=== PATIENT | male | born 1955 | race African-American/Black ===

== ENCOUNTER 2016-08-11 12:29 | Inpatient (IN) | payer MEDICARE ==
[~2016-08-11] VITALS: Ht 172.7 cm; Wt 77.1 kg
[2016-08-11 13:14] LABS: Basophils # (auto) 0.1 uL; Basophils % (auto) 1.2 % (0.0-2.0); DEFINITIVE VIEW TRANSMISSION; Eosinophils # (auto) 0.1 uL; Eosinophils % (auto) 2.4 % (0.0-7.0); Hematocrit 44.7 % (41.0-53.0); Hemoglobin 14.1 g/dL (13.5-17.5); Lymphocytes # (auto) 1.5 uL; Lymphocytes % (auto) 32.9 % (10.0-50.0); Mean Corpuscular Hemoglobin 24.1 pg (28.0-32.0); Mean Corpuscular Hgb Conc. 31.6 g/dL (32.0-36.0); Mean Corpuscular Volume 76.2 fL (80.0-100.0); Mean Platelet Volume 8.8 fL (7.4-10.4); Monocytes # (auto) 0.5 uL; Monocytes % (auto) 11.7 % (0.0-12.0); Neutrophils # (auto) 2.4 uL; Neutrophils % (auto) 51.8 % (37.0-80.0); Platelet Count (auto) 196 10^3/uL (140-450); Red Cell Distribution Width 16.2 % (11.6-16.0); White Blood Cell 4.7 10^3/uL (4.4-10.8)
[2016-08-11] MEDS ORDERED: MORPHINE SULFATE 4 MG/ML SYRG IV ONE (13:30)
[2016-08-11] MEDS ORDERED: SODIUM CHLORIDE 0.9% 1,000 ML IV ONE (13:30)
[2016-08-11] MEDS ORDERED: NITROGLYCERIN 0.2MG/HR TOPICAL PATCH TD ONE (13:30)
[2016-08-11] MEDS ORDERED: ONDANSETRON HCL 4 MG/2 ML VIAL IV ONE (13:30)
[2016-08-11] MEDS ORDERED: ASPirin 81 mg TAB PO ONE (13:30)
[2016-08-11 13:55] LABS: Albumin 3.4 g/dL (3.4-5.0); Alkaline Phosphatase 64 U/L (45-117); Anion Gap 10 (5-15); Aspartate Aminotransferase 9 U/L (15-37); BUN/Creatinine Ratio 17.2; Bilirubin, Total 0.3 mg/dL (0.2-1.0); Blood Urea Nitrogen 21 mg/dL (7-18); Calcium 8.5 mg/dL (8.5-10.1); Carbon Dioxide 24 mmol/L (21-32); Chloride 110 mmol/L (98-107); GFR African American 77 mL/min; GFR Non-African American 64 mL/min; Glucose 100 mg/dL (74-106); Magnesium 2.2 mg/dL (1.6-2.6); Potassium 4.2 mmol/L (3.5-5.1); Sodium 144 mmol/L (136-145); Total Protein 6.9 g/dL (6.4-8.2)
[2016-08-11] MEDS ORDERED: SODIUM CHLORIDE 0.9% 1,000 ML IV SCH (14:54)
[2016-08-11] MEDS ORDERED: PROMETHAZINE HCL 25 MG/ML 1ML IV PRN (15:00)
[2016-08-11] MEDS ORDERED: MORPHINE SULF INJ 2 MG/ML SYRINGE 1ML IV PRN (15:00)
[2016-08-11] MEDS ORDERED: NITROGLYCERIN 0.4 MG SL TAB SL PRN (15:00)
[2016-08-11] MEDS ORDERED: TEMAZEPAM 15 MG CAP PO PRN (15:00)
[2016-08-11] MEDS ORDERED: LACTULOSE 20Gm/30ML SOLN PO PRN (15:00)
[2016-08-11] MEDS ORDERED: LORazepam 0.5 MG TAB PO PRN (15:00)
[2016-08-11] MEDS ORDERED: ACETAMINOPHEN 500 MG TAB PO PRN (15:00)
[2016-08-11] MEDS ORDERED: ALBUTEROL SULF 2.5 MG/0.5ML(0.5%) NEB SOLN NEB PRN (15:00)
[2016-08-11] MEDS ORDERED: ENOXAPARIN SOD 40 MG/0.4 ML SYRINGE SC ONE (15:15)
[2016-08-11] MEDS ORDERED: METOPROLOL TARTRATE 25 MG TAB PO ONE (15:15)
[2016-08-11] MEDS ORDERED: MET50T PO (16:33)
[2016-08-11] MEDS ORDERED: HYDR-531 PO (16:33)
[2016-08-11] MEDS ORDERED: TRIH2TAB3 PO (16:33)
[2016-08-11] MEDS ORDERED: TAMS0.4C36 PO (16:33)
[2016-08-11] MEDS ORDERED: IBUP200C14 PO (16:33)
[2016-08-11] MEDS ORDERED: FAM20T PO (16:33)
[2016-08-11] MEDS ORDERED: ATOR20TA50 PO (16:33)
[2016-08-11] MEDS ORDERED: OLAN10TA29 PO (16:33)
[2016-08-11] MEDS ORDERED: PROM25TA5 PO (16:33)
[2016-08-11] MEDS ORDERED: TRAZ100T2 PO (16:33)
[2016-08-11] MEDS ORDERED: ENAL5TAB92 PO (16:33)
[2016-08-11 16:42] VITALS: BP 153/87
[2016-08-11] MEDS: HYDROcodone-ACET 5/325MG TAB PO PRN (16:54)
[2016-08-11] MEDS: NICOTINE 14 MG/24HR TOPICAL PATCH TD SCH (18:22)
[2016-08-11 19:30] VITALS: BP 133/74
[2016-08-11] MEDS ORDERED: THIAMINE HCL 100 MG/ML 2ML VIAL IV ONE (20:45)
[2016-08-11] MEDS ORDERED: ATORVASTATIN 20 MG TAB PO ONE (21:15)
[2016-08-11] MEDS ORDERED: TAMSULOSIN HYDROCHLORIDE 0.4 MG CAP PO ONE (21:15)
[2016-08-11 22:00] VITALS: BP 133/74
[2016-08-11] MEDS ORDERED: PATIENTS OWN MEDICATION PO SCH ×2 (22:00)
[2016-08-11] MEDS ORDERED: OLANZAPINE PO SCH (22:00)
[2016-08-11] MEDS ORDERED: TRIHEXYPHENIDYL 2 MG PO SCH (22:00)
[2016-08-11] MEDS ORDERED: METOPROLOL TARTRATE 25 MG TAB PO SCH (22:00)
[2016-08-11] MEDS ORDERED: ATORVASTATIN 20 MG TAB PO SCH (22:00)
[2016-08-11] MEDS: FAMOTIDINE 20 MG TAB PO SCH (22:00)
[2016-08-11] MEDS ORDERED: TRIHEXYPHENIDYL HCL PO SCH (22:00)
[2016-08-11] MEDS: TRIHEXYPHENIDYL HCL 2 MG PO SCH (23:11)
[2016-08-11] MEDS: traZODone HCL 50 MG TAB PO SCH (23:12)
[2016-08-11] MEDS: METOPROLOL TARTRATE 50 MG TAB PO SCH (23:13)
[2016-08-11] MEDS: OLANZapine 5 MG TAB PO SCH (23:14)
[2016-08-11] MEDS: SODIUM CHLORIDE 0.9% 1,000 ML IV SCH (23:16)
[2016-08-11] MEDS: chlordiazePOXIDE HCL 5 MG CAP PO SCH (23:49)
[2016-08-12] MEDS: chlordiazePOXIDE HCL 5 MG CAP PO SCH ×4 (05:24→23:48)
[2016-08-12 05:32] VITALS: BP 149/70
[2016-08-12] MEDS: HYDROcodone-ACET 5/325MG TAB PO PRN (06:03)
[2016-08-12 06:39] LABS: Cholesterol 120 mg/dL (<200); HDL Cholesterol 64 mg/dL (40-59); LDL Cholesterol 47 mg/dL (<100); Triglycerides 88 mg/dL (<150)
[2016-08-12 09:00] VITALS: BP 157/70
[2016-08-12] MEDS: ENOXAPARIN SOD 40 MG/0.4 ML SYRINGE SC SCH (09:29)
[2016-08-12] MEDS: FAMOTIDINE 20 MG TAB PO SCH ×3 (09:29→21:48)
[2016-08-12] MEDS: TAMSULOSIN HYDROCHLORIDE 0.4 MG CAP PO SCH (09:29)
[2016-08-12] MEDS: ASPirin 81 mg TAB PO SCH (09:29)
[2016-08-12] MEDS: OLANZapine 5 MG TAB PO SCH ×2 (09:29→21:48)
[2016-08-12] MEDS: ATORVASTATIN 20 MG TAB PO SCH (09:30)
[2016-08-12] MEDS: THIAMINE HCL 100 MG/ML 2ML VIAL IV SCH (09:30)
[2016-08-12] MEDS: METOPROLOL TARTRATE 50 MG TAB PO SCH ×2 (09:32→21:47)
[2016-08-12] MEDS: TRIHEXYPHENIDYL HCL 2 MG PO SCH ×2 (09:32→21:47)
[2016-08-12] MEDS: ENALAPRIL MALEATE 2.5 MG TAB PO SCH (09:33)
[2016-08-12] MEDS ORDERED: PATIENTS OWN MEDICATION (Enalapril Maleate 1 TAB) PO SCH (10:00)
[2016-08-12] MEDS: NITROGLYCERIN 0.2MG/HR TOPICAL PATCH TD SCH (10:00)
[2016-08-12] MEDS: NICOTINE 14 MG/24HR TOPICAL PATCH TD SCH (10:00)
[2016-08-12 13:00] VITALS: BP 131/67
[2016-08-12 17:00] VITALS: BP 133/71
[2016-08-12] MEDS: SODIUM CHLORIDE 0.9% 1,000 ML IV SCH (17:45)
[2016-08-12] MEDS: MORPHINE SULF INJ 2 MG/ML SYRINGE 1ML IV PRN ×2 (17:46→21:56)
[2016-08-12] MEDS ORDERED: PATIENTS OWN MEDICATION (Trazodone Hcl 1 TAB) PO SCH (18:00)
[2016-08-12 20:00] VITALS: BP 139/53
[2016-08-12] MEDS: traZODone HCL 50 MG TAB PO SCH (21:48)
[2016-08-12 22:00] VITALS: BP 139/53
[2016-08-13] VITALS (7 sets, daily range): BP systolic 123–147; BP diastolic 47–77
[2016-08-13] MEDS: SODIUM CHLORIDE 0.9% 1,000 ML IV SCH ×2 (01:55→15:15)
[2016-08-13] MEDS: chlordiazePOXIDE HCL 5 MG CAP PO SCH ×3 (05:48→18:50)
[2016-08-13] MEDS: MORPHINE SULF INJ 2 MG/ML SYRINGE 1ML IV PRN ×4 (05:52→22:59)
[2016-08-13] MEDS: NITROGLYCERIN 0.2MG/HR TOPICAL PATCH TD SCH (10:00)
[2016-08-13] MEDS: FAMOTIDINE 20 MG TAB PO SCH ×2 (10:00→22:00)
[2016-08-13] MEDS: NICOTINE 14 MG/24HR TOPICAL PATCH TD SCH (10:00)
[2016-08-13] MEDS: TAMSULOSIN HYDROCHLORIDE 0.4 MG CAP PO SCH (11:26)
[2016-08-13] MEDS: THIAMINE HCL 100 MG/ML 2ML VIAL IV SCH (11:26)
[2016-08-13] MEDS: ENOXAPARIN SOD 40 MG/0.4 ML SYRINGE SC SCH (11:26)
[2016-08-13] MEDS: OLANZapine 5 MG TAB PO SCH ×2 (11:26→21:59)
[2016-08-13] MEDS: ASPirin 81 mg TAB PO SCH (11:26)
[2016-08-13] MEDS: METOPROLOL TARTRATE 50 MG TAB PO SCH ×2 (11:27→22:00)
[2016-08-13] MEDS: TRIHEXYPHENIDYL HCL 2 MG PO SCH ×2 (11:28→21:59)
[2016-08-13] MEDS: ENALAPRIL MALEATE 2.5 MG TAB PO SCH (11:28)
[2016-08-13] MEDS: ATORVASTATIN 20 MG TAB PO SCH (11:30)
[2016-08-13] MEDS: traZODone HCL 50 MG TAB PO SCH (21:59)
[2016-08-14] VITALS (7 sets, daily range): BP systolic 129–155; BP diastolic 63–73
[2016-08-14] MEDS: chlordiazePOXIDE HCL 5 MG CAP PO SCH ×5 (00:22→23:39)
[2016-08-14] MEDS: SODIUM CHLORIDE 0.9% 1,000 ML IV SCH ×2 (05:42→18:37)
[2016-08-14] MEDS ORDERED: ADENOSINE 64 MG in GIVE UN-DILUTED 0 ML IV ONE (09:30)
[2016-08-14] MEDS: NITROGLYCERIN 0.2MG/HR TOPICAL PATCH TD SCH (10:00)
[2016-08-14] MEDS: FAMOTIDINE 20 MG TAB PO SCH ×2 (10:00→21:36)
[2016-08-14] MEDS: NICOTINE 14 MG/24HR TOPICAL PATCH TD SCH (10:00)
[2016-08-14] MEDS: ENOXAPARIN SOD 40 MG/0.4 ML SYRINGE SC SCH (10:38)
[2016-08-14] MEDS: ATORVASTATIN 20 MG TAB PO SCH (10:38)
[2016-08-14] MEDS: OLANZapine 5 MG TAB PO SCH ×2 (10:38→21:35)
[2016-08-14] MEDS: ASPirin 81 mg TAB PO SCH (10:38)
[2016-08-14] MEDS: ENALAPRIL MALEATE 2.5 MG TAB PO SCH (10:38)
[2016-08-14] MEDS: TAMSULOSIN HYDROCHLORIDE 0.4 MG CAP PO SCH (10:39)
[2016-08-14] MEDS: METOPROLOL TARTRATE 50 MG TAB PO SCH ×2 (10:39→21:35)
[2016-08-14] MEDS: THIAMINE HCL 100 MG/ML 2ML VIAL IV SCH (10:39)
[2016-08-14] MEDS: MORPHINE SULF INJ 2 MG/ML SYRINGE 1ML IV PRN ×2 (10:56→17:25)
[2016-08-14] MEDS: TRIHEXYPHENIDYL HCL 2 MG PO SCH ×2 (10:56→21:36)
[2016-08-14] MEDS: traZODone HCL 50 MG TAB PO SCH (21:35)
[2016-08-15 05:02] VITALS: BP 114/57
[2016-08-15] MEDS: chlordiazePOXIDE HCL 5 MG CAP PO SCH ×2 (06:05→11:08)
[2016-08-15] MEDS: SODIUM CHLORIDE 0.9% 1,000 ML IV SCH (07:15)
[2016-08-15 08:00] VITALS: BP 124/65
[2016-08-15 09:00] VITALS: BP 124/65
[2016-08-15] MEDS: THIAMINE HCL 100 MG/ML 2ML VIAL IV SCH (09:23)
[2016-08-15] MEDS: ASPirin 81 mg TAB PO SCH (09:23)
[2016-08-15] MEDS: OLANZapine 5 MG TAB PO SCH (09:24)
[2016-08-15] MEDS: TAMSULOSIN HYDROCHLORIDE 0.4 MG CAP PO SCH (09:24)
[2016-08-15] MEDS: ENOXAPARIN SOD 40 MG/0.4 ML SYRINGE SC SCH (09:24)
[2016-08-15] MEDS: ENALAPRIL MALEATE 2.5 MG TAB PO SCH (09:24)
[2016-08-15] MEDS: METOPROLOL TARTRATE 50 MG TAB PO SCH (09:25)
[2016-08-15] MEDS: NITROGLYCERIN 0.2MG/HR TOPICAL PATCH TD SCH (09:26)
[2016-08-15] MEDS: NICOTINE 14 MG/24HR TOPICAL PATCH TD SCH (09:26)
[2016-08-15] MEDS: FAMOTIDINE 20 MG TAB PO SCH (09:27)
[2016-08-15] MEDS: MORPHINE SULF INJ 2 MG/ML SYRINGE 1ML IV PRN (09:28)
[2016-08-15] MEDS: TRIHEXYPHENIDYL HCL 2 MG PO SCH (10:00)
[2016-08-15] MEDS: HYDROcodone-ACET 5/325MG TAB PO PRN (11:17)
[2016-08-15 12:50] VITALS: BP 131/71
[2016-08-15 13:15] VITALS: BP 131/71
[2016-08-15] MEDS ORDERED: ATORVASTATIN 20 MG TAB PO SCH (22:00)
== END 2016-08-15 13:50 | disposition left against medical advice (07) | DRG 313 ==
LOC: ER 12:29 → TELE 12:30 → TELE-EAST 15:56
PROVIDERS: ADMIT Internal Medicine; ATTEND Internal Medicine Pulmonary Disease
DX: R07.9 Chest pain, unspecified (principal); I25.10 Atherosclerotic heart disease of native coronary artery without angina pectoris; E78.00 Pure hypercholesterolemia, unspecified; E78.5 Hyperlipidemia, unspecified; F17.210 Nicotine dependence, cigarettes, uncomplicated; F20.9 Schizophrenia, unspecified; F12.10 Cannabis abuse, uncomplicated; F10.20 Alcohol dependence, uncomplicated; F32.9 Major depressive disorder, single episode, unspecified; I15.9 Secondary hypertension, unspecified; J44.9 Chronic obstructive pulmonary disease, unspecified; K21.9 Gastro-esophageal reflux disease without esophagitis; Z82.3 Family history of stroke; Z90.5 Acquired absence of kidney; Z82.49 Family history of ischemic heart disease and other diseases of the circulatory system; Z71.51 Drug abuse counseling and surveillance of drug abuser; Z71.6 Tobacco abuse counseling; I25.2 Old myocardial infarction
CPT/HCPCS: 36415; 71010; 74176; 78452; 80053; 80061; 82550; 83735; 84484; 85025; 85379; 85652; 86141; 93005; 93017; 94640; 94761; 96372; 96374; 96375; 99291; G0434; J0153; J2405

== ENCOUNTER 2017-04-11 20:32 | Emergency (ER) | payer OTHER, MEDICAID ==
[~2017-04-11] VITALS: Ht 172.7 cm; Wt 76.7 kg
[~2017-04-11 20:32] MED LIST: ACET-1156 PO; ATOR20TA50 PO; ENAL5TAB92 PO; FAM20T PO; HYDR-531 PO; IBUP200C14 PO; MET50T PO; OLAN10TA29 PO; TAMS0.4C36 PO; TRAZ100T2 PO; TRIH2TAB3 PO
[2017-04-11 21:15] LABS: Eosinophils # (auto) 0.1 uL; Hemoglobin 13.1 g/dL (13.5-17.5); Mean Corpuscular Hemoglobin 24.8 pg (28.0-32.0); Mean Corpuscular Hgb Conc. 32.1 g/dL (32.0-36.0); Mean Platelet Volume 7.7 fL (6.9-10.8); Nucleated Red Blood Cells % 0.1 %; White Blood Cell 5.4 10^3/uL (4.4-10.8)
[2017-04-11 21:16] LABS: Basophils # (auto) 0.2 uL; Basophils % (auto) 4.4 % (0.0-2.0); Eosinophils % (auto) 2.5 % (0.0-7.0); Hematocrit 40.9 % (41.0-53.0); Lymphocytes % (auto) 37.5 % (10.0-50.0); Mean Corpuscular Volume 77.4 fL (80.0-100.0); Monocytes # (auto) 0.4 uL; Monocytes % (auto) 8.1 % (0.0-12.0); Neutrophils # (auto) 2.6 uL; Neutrophils % (auto) 47.5 % (37.0-80.0); Platelet Count (auto) 196 10^3/uL (140-450)
[2017-04-11 21:25] LABS: Urine RBC None Seen /hpf (0 - 3)
[2017-04-11 21:34] LABS: Albumin 3.6 g/dL (3.4-5.0); Alkaline Phosphatase 69 U/L (45-117); Anion Gap 8 (5-15); Aspartate Aminotransferase 9 U/L (15-37); BUN/Creatinine Ratio 12.2; Bilirubin, Total 0.2 mg/dL (0.2-1.0); Blood Urea Nitrogen 18 mg/dL (7-18); Calcium 8.5 mg/dL (8.5-10.1); Carbon Dioxide 24 mmol/L (21-32); Chloride 106 mmol/L (98-107); GFR African American 62 mL/min; GFR Non-African American 51 mL/min; Glucose 82 mg/dL (74-106); Magnesium 2.2 mg/dL (1.6-2.6); Potassium 3.8 mmol/L (3.5-5.1); Sodium 138 mmol/L (136-145); Total Protein 7.2 g/dL (6.4-8.2)
[2017-04-11 21:40] LABS: Urine Bilirubin Negative (Negative); Urine Blood Negative /uL (Negative); Urine Color Yellow (Yellow); Urine Glucose Normal (Normal); Urine Ketone Negative (Negative); Urine Nitrite Negative (Negative); Urine Urobilinogen Normal (Negative)
[2017-04-11 21:46] LABS: B-Type Natriuretic Peptide 91.82 pg/mL (0-100)
[2017-04-11 21:55] LABS: Temperature: 23.3 C (20.0-25.0)
[2017-04-11 22:00] LABS: INR 0.97 (0.9-1.15); Partial Thromboplastin Time 31.3 sec (22.64-33.71); Prothrombin Time 10.6 sec (9.37-12.3)
[2017-04-12] MEDS ORDERED: cloNIDine HCL 0.1 MG TAB PO ONE (01:45)
[2017-04-12 02:17] VITALS: BP 170/99
== END 2017-04-12 03:39 | disposition home or self-care (01) ==
LOC: ER 20:32
DX: R07.89 Other chest pain (principal); J44.9 Chronic obstructive pulmonary disease, unspecified; K21.9 Gastro-esophageal reflux disease without esophagitis; I13.0 Hypertensive heart and chronic kidney disease with heart failure and stage 1 through stage 4 chronic kidney disease, or unspecified chronic kidney disease; N18.9 Chronic kidney disease, unspecified; I50.9 Heart failure, unspecified; E78.5 Hyperlipidemia, unspecified; I25.2 Old myocardial infarction; F17.210 Nicotine dependence, cigarettes, uncomplicated
CPT/HCPCS: 36415; 71010; 80053; 80307; 81001; 83735; 83880; 84484; 85025; 85610; 85730; 93005

== ENCOUNTER 2022-06-20 17:44 | Emergency (ER) | payer MEDICAID, OTHER ==
[~2022-06-20] VITALS: Ht 172.7 cm; Wt 59.0 kg
[~2022-06-20 17:44] MED LIST changes: +ENAL5TAB10 PO; -ENAL5TAB92 PO; -FAM20T PO; +FAMO20TA10 PO; -OLAN10TA29 PO; +OLAN1TAB19 PO; -TRAZ100T2 PO; +TRAZ100T3 PO
[2022-06-20 19:07] LABS: Basophils # (auto) 0 10 ^3/uL (0-0.2); Eosinophils # (auto) 0.1 10 ^3/uL (0-0.8); Hemoglobin 10.7 g/dL (13.5-17.5); Lymphocytes # (auto) 1.4 10 ^3/uL (0.4-5.4); Monocytes # (auto) 0.5 10 ^3/uL (0-1.3)
[2022-06-20 19:08] LABS: Basophils % (auto) 0.3 % (0.0-2.0); Eosinophils % (auto) 1.9 % (0.0-7.0); Mean Corpuscular Hemoglobin 23.2 pg (28.0-32.0); Mean Corpuscular Hgb Conc. 32.6 g/dL (32.0-36.0); Mean Corpuscular Volume 71.3 fL (80.0-100.0); Monocytes % (auto) 10.3 % (0.0-12.0); Neutrophils % (auto) 59.5 % (37.0-80.0); Nucleated Red Blood Cells % 0.1 %; Red Blood Cells 4.62 10^6/uL (4.5-5.90)
[2022-06-20 19:09] LABS: Red Cell Distribution Width 20.4 % (11.8-14.3)
[2022-06-20 19:15] LABS: Albumin 3.9 g/dL (3.4-5.0); Calcium 9.3 mg/dL (8.5-10.1); Potassium 4.1 mmol/L (3.5-5.1)
[2022-06-20 19:17] LABS: BUN/Creatinine Ratio 13.6
[2022-06-20 19:20] LABS: Bilirubin, Total 0.4 mg/dL (0.2-1.0); Total Protein 7.2 g/dL (6.4-8.2)
[2022-06-20] MEDS ORDERED: MAALOX PLUS or MAALOX 30 ML PO ONE (22:45)
[2022-06-21 00:53] VITALS: BP 164/80
== END 2022-06-21 00:54 | disposition home or self-care (01) ==
LOC: ER 17:44
DX: G89.29 Other chronic pain (principal); R10.13 Epigastric pain; I12.9 Hypertensive chronic kidney disease with stage 1 through stage 4 chronic kidney disease, or unspecified chronic kidney disease; N18.9 Chronic kidney disease, unspecified; I25.10 Atherosclerotic heart disease of native coronary artery without angina pectoris; J44.9 Chronic obstructive pulmonary disease, unspecified; K21.9 Gastro-esophageal reflux disease without esophagitis; E78.5 Hyperlipidemia, unspecified; I25.2 Old myocardial infarction; F17.210 Nicotine dependence, cigarettes, uncomplicated; Z79.1 Long term (current) use of non-steroidal anti-inflammatories (NSAID); Z79.899 Other long term (current) drug therapy
CPT/HCPCS: 36415; 74176; 80053; 83690; 84484; 85025; 93005

== ENCOUNTER 2022-07-19 22:26 | Inpatient (IN) | payer OTHER ==
[~2022-07-19] VITALS: Ht 172.7 cm; Wt 63.8 kg
[2022-07-19] MEDS ORDERED: amLODIPine BESYLATE 5 MG TAB PO ONE (23:15)
[2022-07-19 23:46] LABS: Basophils # (auto) 0 10 ^3/uL (0-0.2); Basophils % (auto) 0.3 % (0.0-2.0); Eosinophils # (auto) 0.1 10 ^3/uL (0-0.8); Eosinophils % (auto) 0.9 % (0.0-7.0); Hematocrit 41.1 % (41.0-53.0); Hemoglobin 12.8 g/dL (13.5-17.5); Lymphocytes # (auto) 1.4 10 ^3/uL (0.4-5.4); Lymphocytes % (auto) 20.7 % (10.0-50.0); Mean Corpuscular Hemoglobin 22.9 pg (28.0-32.0); Mean Corpuscular Hgb Conc. 31.1 g/dL (32.0-36.0); Mean Corpuscular Volume 73.7 fL (80.0-100.0); Monocytes # (auto) 0.7 10 ^3/uL (0-1.3); Monocytes % (auto) 11.2 % (0.0-12.0); Neutrophils # (auto) 4.4 10 ^3/uL (1.6-8.6); Neutrophils % (auto) 66.9 % (37.0-80.0); Nucleated Red Blood Cells % 0.2 %; Red Blood Cells 5.57 10^6/uL (4.5-5.90); Red Cell Distribution Width 18.6 % (11.8-14.3); White Blood Cell 6.5 10^3/uL (4.4-10.8)
[2022-07-19 23:53] LABS: Calcium 9.7 mg/dL (8.5-10.1)
[2022-07-19 23:57] LABS: Albumin 3.6 g/dL (3.4-5.0); BUN/Creatinine Ratio 9.6
[2022-07-19 23:59] LABS: Bilirubin, Total 0.3 mg/dL (0.2-1.0); Total Protein 7.7 g/dL (6.4-8.2)
[2022-07-20 01:00] VITALS: BP 154/79
[2022-07-20] MEDS ORDERED: ONDANSETRON HCL 4 MG/2 ML VIAL IV PRN ×2 (07:15→11:15)
[2022-07-20] MEDS ORDERED: MORPHINE SULFATE INJ 2 MG/ml SYRG IV PRN (07:15)
[2022-07-20] MEDS ORDERED: POTASSIUM CHL 20MEQ/100ML 100 ML IV ONE ×2 (07:15→11:15)
[2022-07-20] MEDS ORDERED: hydrALAZINE HCL 20 MG/ML VL IV PRN ×2 (07:15→11:15)
[2022-07-20] MEDS ORDERED: PANTOPRAZOLE 40 MG/10 ML VIAL INJ IV SCH (10:00)
[2022-07-25] MEDS ORDERED: FURO40TA4 PO (02:38)
[2022-07-25] MEDS ORDERED: LACT10SO3 PO (02:38)
[2022-07-25] MEDS ORDERED: AMLO-496 PO (02:38)
[2022-07-25] MEDS ORDERED: NIFE90TA49 PO (02:38)
[2022-07-25] MEDS ORDERED: TRAM50TA2 PO (02:38)
[2022-07-25] MEDS ORDERED: [UNRECOGNIZED DRUG - CODE] PO (02:38)
[2022-07-25] MEDS ORDERED: ATOR10TA52 PO (02:38)
[2022-07-25] MEDS ORDERED: OLAN1TAB7 PO (02:38)
[2022-07-25] MEDS ORDERED: METR500T14 PO (10:57)
== END 2022-07-20 09:30 | disposition left against medical advice (07) | DRG 389 ==
LOC: ER 22:26 → EDBD 22:26 → OVERFLOW 07-20 07:04
PROVIDERS: ADMIT Nurse Practitioner; ATTEND Internal Medicine
DX: K56.609 Unspecified intestinal obstruction, unspecified as to partial versus complete obstruction (principal); N13.30 Unspecified hydronephrosis; N17.9 Acute kidney failure, unspecified; D64.9 Anemia, unspecified; E87.6 Hypokalemia; F17.210 Nicotine dependence, cigarettes, uncomplicated; F20.9 Schizophrenia, unspecified; I12.9 Hypertensive chronic kidney disease with stage 1 through stage 4 chronic kidney disease, or unspecified chronic kidney disease; I16.0 Hypertensive urgency; F32.A Depression, unspecified; K21.9 Gastro-esophageal reflux disease without esophagitis; I25.10 Atherosclerotic heart disease of native coronary artery without angina pectoris; Z53.29 Procedure and treatment not carried out because of patient's decision for other reasons; N28.89 Other specified disorders of kidney and ureter; J44.9 Chronic obstructive pulmonary disease, unspecified; N18.30 Chronic kidney disease, stage 3 unspecified; N40.0 Benign prostatic hyperplasia without lower urinary tract symptoms; Z82.49 Family history of ischemic heart disease and other diseases of the circulatory system; Z90.5 Acquired absence of kidney; I25.2 Old myocardial infarction
CPT/HCPCS: 36415; 70450; 71045; 71250; 74176; 80053; 83690; 84484; 85025; G0378

== ENCOUNTER 2022-08-24 12:49 | Emergency (ER) | payer OTHER ==
[~2022-08-24] VITALS: Ht 167.6 cm; Wt 57.8 kg
[~2022-08-24 12:49] MED LIST changes: +AMLO-496 PO; +ATOR10TA52 PO; -ATOR20TA50 PO; +FURO40TA4 PO; +HYDR-4902 PO; -HYDR-531 PO; -IBUP200C14 PO; +LACT10SO3 PO; +LINE1TAB6 PO; +NIFE90TA49 PO; -OLAN1TAB19 PO; +OLAN1TAB7 PO; +TRAM50TA2 PO; +[UNRECOGNIZED DRUG - CODE] PO
[2022-08-24 13:07] VITALS: BP 128/57
== END 2022-08-24 21:01 | disposition home or self-care (01) ==
LOC: ER 12:49
DX: T82.594A Other mechanical complication of infusion catheter, initial encounter (principal); I25.10 Atherosclerotic heart disease of native coronary artery without angina pectoris; I12.9 Hypertensive chronic kidney disease with stage 1 through stage 4 chronic kidney disease, or unspecified chronic kidney disease; N18.9 Chronic kidney disease, unspecified; J44.9 Chronic obstructive pulmonary disease, unspecified; F32.9 Major depressive disorder, single episode, unspecified; K21.9 Gastro-esophageal reflux disease without esophagitis; E78.5 Hyperlipidemia, unspecified; I25.2 Old myocardial infarction; F20.9 Schizophrenia, unspecified; F17.210 Nicotine dependence, cigarettes, uncomplicated

== ENCOUNTER 2022-08-30 00:08 | Inpatient (IN) | payer OTHER ==
[~2022-08-30] VITALS: Ht 175.3 cm; Wt 56.3 kg
[2022-08-30] MEDS ORDERED: DEXTROSE 10% 250 ML IV ONE (00:29)
[2022-08-30] MEDS ORDERED: DEXTROSE (50%) 50ML SYRG IV ONE (00:45)
[2022-08-30] MEDS ORDERED: cloNIDine HCL 0.1 MG TAB PO ONE (01:15)
[2022-08-30 01:57] LABS: Basophils # (auto) 0 10 ^3/uL (0-0.2); Basophils % (auto) 0.5 % (0.0-2.0); Eosinophils # (auto) 0.1 10 ^3/uL (0-0.8); Lymphocytes # (auto) 1.1 10 ^3/uL (0.4-5.4); Monocytes # (auto) 0.6 10 ^3/uL (0-1.3); Neutrophils # (auto) 1.9 10 ^3/uL (1.6-8.6); White Blood Cell 3.6 10^3/uL (4.4-10.8)
[2022-08-30 01:59] LABS: Eosinophils % (auto) 1.6 % (0.0-7.0); Hematocrit 30.2 % (41.0-53.0); Hemoglobin 9.5 g/dL (13.5-17.5); Lymphocytes % (auto) 30.3 % (10.0-50.0); Mean Corpuscular Hemoglobin 22.9 pg (28.0-32.0); Mean Corpuscular Hgb Conc. 31.3 g/dL (32.0-36.0); Mean Corpuscular Volume 73.1 fL (80.0-100.0); Monocytes % (auto) 15.6 % (0.0-12.0); Nucleated Red Blood Cells % 0.2 %; Red Blood Cells 4.14 10^6/uL (4.5-5.90); Red Cell Distribution Width 16.9 % (11.8-14.3)
[2022-08-30 02:09] LABS: Albumin 2.1 g/dL (3.4-5.0); BUN/Creatinine Ratio 11.9; Calcium 7.5 mg/dL (8.5-10.1); Potassium 3.3 mmol/L (3.5-5.1)
[2022-08-30 02:16] LABS: Bilirubin, Total 0.1 mg/dL (0.2-1.0); Total Protein 5.4 g/dL (6.4-8.2)
[2022-08-30] MEDS ORDERED: LACTATED RINGER'S 1,000 ML IV ONE (05:45)
[2022-08-30] MEDS ORDERED: VANCOMYCIN 1GM/250ML 250 ML IV ONE (05:45)
[2022-08-30] MEDS ORDERED: PIPERACILLIN-TAZOB 3.375GM 100 ML IV ONE (05:45)
[2022-08-30] MEDS ORDERED: hydrALAZINE HCL 20 MG/ML VL IV ONE (06:15)
[2022-08-30] MEDS ORDERED: ACETAMINOPHEN 325 MG TAB PO ONE (10:45)
[2022-08-30] MEDS ORDERED: ONDANSETRON HCL 4 MG/2 ML VIAL IV PRN (10:45)
[2022-08-30] MEDS ORDERED: PANTOPRAZOLE 40 MG/10 ML VIAL INJ IV ONE (10:45)
[2022-08-30] MEDS ORDERED: POTASSIUM EFFERVESENT TAB 25 MEQ PO ONE (11:00)
[2022-08-30] MEDS ORDERED: VANCOMYCIN PER PHARMACY 0 MG IV SCH (11:00)
[2022-08-30] MEDS: SODIUM CHLORIDE 0.9% 1,000 ML IV SCH (11:19)
[2022-08-30 11:30] LABS: Urine Bacteria NONE SEEN /hpf (None Seen); Urine Blood Negative /uL (Negative); Urine Specific Gravity 1.009 (1.001-1.035); Urine WBC 1 /hpf (0 - 3)
[2022-08-30] MEDS: PIPERACILLIN-TAZOB 3.375GM 100 ML IV SCH ×3 (12:42→23:29)
[2022-08-30 13:32] LABS: Alcohol, Urine < 3.0 mg/dL (0-10); Amphetamine Screen, Urine NEGATIVE (NEGATIVE); Barbiturate Scree,Urine NEGATIVE (NEGATIVE); Benzodiazephine Screen, Urine NEGATIVE (NEGATIVE); Cannabinoid Screen, Urine NEGATIVE (NEGATIVE); Cocaine Screen, Urine NEGATIVE (NEGATIVE); Opiate Scree,Urine NEGATIVE (NEGATIVE); Phencyclidine Screen, Urine NEGATIVE (NEGATIVE)
[2022-08-30 13:45] LABS: INR 1.13 (0.9-1.15)
[2022-08-30] MEDS ORDERED: CIMETIDINE PO SCH (14:00)
[2022-08-30] MEDS ORDERED: VANCOMYCIN 1GM/250ML 250 ML IV SCH (14:00)
[2022-08-30] MEDS ORDERED: hydrALAZINE HCL 20 MG/ML VL IV PRN (20:15)
[2022-08-30 22:00] VITALS: BP 125/77
[2022-08-30] MEDS ORDERED: ATORVASTATIN 20 MG TAB PO SCH (22:00)
[2022-08-30] MEDS: TRIHEXYPHENIDYL HCL 2 MG PO SCH (22:00)
[2022-08-30] MEDS: FAMOTIDINE 20 MG TAB PO SCH (22:26)
[2022-08-30 23:02] VITALS: BP_SYST 123; BP_DIAS 71; BP_DIAS 77
[2022-08-31] MEDS ORDERED: VANCOMYCIN 1GM/250ML 250 ML IV SCH (01:00)
[2022-08-31] MEDS: SODIUM CHLORIDE 0.9% 1,000 ML IV SCH (03:25)
[2022-08-31 05:00] VITALS: BP 149/70
[2022-08-31] MEDS: PIPERACILLIN-TAZOB 3.375GM 100 ML IV SCH ×2 (06:13→12:00)
[2022-08-31 06:16] LABS: Hematocrit 32.8 % (41.0-53.0); Hemoglobin 10.4 g/dL (13.5-17.5); Mean Corpuscular Hgb Conc. 31.8 g/dL (32.0-36.0); White Blood Cell 3.6 10^3/uL (4.4-10.8)
[2022-08-31 06:20] LABS: Mean Corpuscular Hemoglobin 22.9 pg (28.0-32.0); Mean Corpuscular Volume 71.9 fL (80.0-100.0); Red Blood Cells 4.57 10^6/uL (4.5-5.90)
[2022-08-31 06:24] LABS: Band Neutrophils % (manual) 0; Basophils % (manual) 0 (0.0-2.0); Blast Cells 0; Metamyelocytes % 0; Myelocytes % 0; Promyelocytes % 0; Reactive Lymphocytes 0
[2022-08-31 06:32] LABS: Albumin 2.1 g/dL (3.4-5.0); BUN/Creatinine Ratio 12.2; Calcium 7.6 mg/dL (8.5-10.1); Potassium 3.9 mmol/L (3.5-5.1)
[2022-08-31 06:35] LABS: Bilirubin, Total 0.3 mg/dL (0.2-1.0); Total Protein 5.1 g/dL (6.4-8.2)
[2022-08-31 07:24] LABS: Eosinophils % (manual) 1 (0-7); Lymphocytes % (manual) 30 (10.0-50.0); Monocytes % (manual) 19 (0-12)
[2022-08-31 09:00] VITALS: BP 163/80
[2022-08-31] MEDS ORDERED: ENALAPRIL MALEATE 2.5 MG TAB PO SCH (10:00)
[2022-08-31] MEDS ORDERED: FUROSEMIDE 40 MG TAB PO SCH (10:00)
[2022-08-31] MEDS ORDERED: TAMSULOSIN HYDROCHLORIDE 0.4 MG CAP PO SCH (10:00)
[2022-08-31] MEDS ORDERED: PANTOPRAZOLE 40 MG/10 ML VIAL INJ IV SCH (10:00)
[2022-08-31] MEDS ORDERED: amLODIPine BESYLATE 5 MG TAB PO SCH (10:00)
[2022-08-31] MEDS: TRIHEXYPHENIDYL HCL 2 MG PO SCH (10:00)
[2022-08-31] MEDS: FAMOTIDINE 20 MG TAB PO SCH (10:37)
[2022-08-31 13:00] VITALS: BP 154/97
== END 2022-08-31 13:58 | disposition left against medical advice (07) | DRG 640 ==
LOC: ER 00:08 → EDBD 00:08 → EDUNIT# 00:08 → OVERFLOW 10:46 → WEST WING 21:05
PROVIDERS: ADMIT Nurse Practitioner Family; ATTEND Internal Medicine
DX: E16.2 Hypoglycemia, unspecified (principal); E43 Unspecified severe protein-calorie malnutrition; G93.41 Metabolic encephalopathy; Z68.1 Body mass index [BMI] 19.9 or less, adult; D64.9 Anemia, unspecified; I16.0 Hypertensive urgency; G30.9 Alzheimer's disease, unspecified; F20.9 Schizophrenia, unspecified; Z20.822 Contact with and (suspected) exposure to COVID-19; D72.819 Decreased white blood cell count, unspecified; E78.5 Hyperlipidemia, unspecified; E86.0 Dehydration; E87.6 Hypokalemia; J44.9 Chronic obstructive pulmonary disease, unspecified; Z53.29 Procedure and treatment not carried out because of patient's decision for other reasons; I25.10 Atherosclerotic heart disease of native coronary artery without angina pectoris; K21.9 Gastro-esophageal reflux disease without esophagitis; N18.9 Chronic kidney disease, unspecified; I12.9 Hypertensive chronic kidney disease with stage 1 through stage 4 chronic kidney disease, or unspecified chronic kidney disease; F32.A Depression, unspecified; F17.210 Nicotine dependence, cigarettes, uncomplicated; F02.80 Dementia in other diseases classified elsewhere, unspecified severity, without behavioral disturbance, psychotic disturbance, mood disturbance, and anxiety; I25.2 Old myocardial infarction
CPT/HCPCS: 36415; 80053; 80307; 81001; 82962; 83735; 85007; 85025; 85027; 85610; 87426; 93005; 96365; 96366; 96375; C9113; G0378; J2543

== ENCOUNTER 2022-10-25 15:41 | Emergency (ER) | payer OTHER ==
[~2022-10-25] VITALS: Ht 172.7 cm; Wt 68.4 kg
[2022-10-25 16:08] VITALS: BP 157/76
[2022-10-25 17:44] LABS: Basophils % (auto) 1.4 % (0.0-2.0); Eosinophils # (auto) 0 10 ^3/uL (0-0.8); Eosinophils % (auto) 0.7 % (0.0-7.0); Lymphocytes # (auto) 1.1 10 ^3/uL (0.4-5.4); Monocytes # (auto) 0.4 10 ^3/uL (0-1.3); White Blood Cell 3.6 10^3/uL (4.4-10.8)
[2022-10-25 17:46] LABS: Basophils # (auto) 0.1 10 ^3/uL (0-0.2); Hematocrit 36.8 % (41.0-53.0); Hemoglobin 11.6 g/dL (13.5-17.5); Lymphocytes % (auto) 30.3 % (10.0-50.0); Mean Corpuscular Hemoglobin 23.3 pg (28.0-32.0); Mean Corpuscular Hgb Conc. 31.4 g/dL (32.0-36.0); Mean Corpuscular Volume 74.1 fL (80.0-100.0); Monocytes % (auto) 11.1 % (0.0-12.0); Neutrophils % (auto) 56.5 % (37.0-80.0); Nucleated Red Blood Cells % 0.3 %; Red Blood Cells 4.97 10^6/uL (4.5-5.90); Red Cell Distribution Width 18.9 % (11.8-14.3)
[2022-10-25 18:37] LABS: Calcium 9.1 mg/dL (8.5-10.1); Potassium 4.1 mmol/L (3.5-5.1)
[2022-10-25 18:43] LABS: Albumin 3.5 g/dL (3.4-5.0); BUN/Creatinine Ratio 14.4 (10.0-20.0); Bilirubin, Total 0.3 mg/dL (0.2-1.0); Total Protein 7.5 g/dL (6.4-8.2)
[2022-10-25 19:16] LABS: Urine Bacteria NONE SEEN /hpf (None Seen); Urine Blood Negative /uL (Negative); Urine Specific Gravity 1.011 (1.001-1.035); Urine WBC 2 /hpf (0 - 3)
== END 2022-10-26 01:58 | disposition left against medical advice (07) ==
LOC: ER 15:41
DX: K59.00 Constipation, unspecified (principal); R94.31 Abnormal electrocardiogram [ECG] [EKG]; Z53.21 Procedure and treatment not carried out due to patient leaving prior to being seen by health care provider
CPT/HCPCS: 36415; 74176; 80053; 81001; 85025; 93005

== ENCOUNTER 2022-11-11 12:07 | Inpatient (IN) | payer OTHER ==
[~2022-11-11] VITALS: Ht 172.7 cm; Wt 61.7 kg
[~2022-11-11 12:07] MED LIST changes: -ACET-1156 PO; +ACET-1881 PO; -AMLO-496 PO; +AMLO1TAB23 PO; -ENAL5TAB10 PO; +ENAL5TAB22 PO; -NIFE90TA49 PO; +NIFE90TA75 PO; +TRAZ-228 PO; -TRAZ100T3 PO
[2022-11-11 12:54] LABS: Urine Bacteria NONE SEEN /hpf (None Seen); Urine Blood Negative /uL (Negative); Urine Specific Gravity 1.011 (1.001-1.035); Urine WBC 1 /hpf (0 - 3)
[2022-11-11 13:18] LABS: Hematocrit 41.7 % (41.0-53.0); Hemoglobin 13.2 g/dL (13.5-17.5); Mean Corpuscular Hemoglobin 23.7 pg (28.0-32.0); Mean Corpuscular Hgb Conc. 31.6 g/dL (32.0-36.0); Mean Corpuscular Volume 75.2 fL (80.0-100.0); Red Blood Cells 5.55 10^6/uL (4.5-5.90); Red Cell Distribution Width 17.7 % (11.8-14.3); White Blood Cell 3.4 10^3/uL (4.4-10.8)
[2022-11-11 13:28] LABS: Basophils % (manual) 0 (0.0-2.0); Blast Cells 0; Eosinophils % (manual) 0 (0-7); Myelocytes % 0; Promyelocytes % 0; Reactive Lymphocytes 0
[2022-11-11] MEDS ORDERED: SODIUM CHLORIDE 0.9% 500 ML IVB ONE (13:30)
[2022-11-11 13:37] LABS: Albumin 3.3 g/dL (3.4-5.0); Calcium 8.5 mg/dL (8.5-10.1); Potassium 4.9 mmol/L (3.5-5.1)
[2022-11-11 13:41] LABS: BUN/Creatinine Ratio 15.6 (10.0-20.0); Bilirubin, Total 0.2 mg/dL (0.2-1.0); Total Protein 7.3 g/dL (6.4-8.2)
[2022-11-11 13:47] LABS: INR 1.01 (0.9-1.15); Partial Thromboplastin Time 30.4 sec (24.6-33.4)
[2022-11-11 14:03] LABS: Band Neutrophils % (manual) 1; Lymphocytes % (manual) 24 (10.0-50.0); Metamyelocytes % 1; Monocytes % (manual) 15 (0-12)
[2022-11-11] MEDS ORDERED: GASTROGRAFIN 30 ML SOL ONE (14:35)
[2022-11-11] MEDS ORDERED: ONDANSETRON ODT 4 MG TAB PO ONE (16:30)
[2022-11-11] MEDS ORDERED: MORPHINE SULFATE 4 MG/ML SYR/VIAL IM ONE (16:30)
[2022-11-11] MEDS ORDERED: SODIUM CHLORIDE 0.9% 500 ML IV ONE (16:30)
[2022-11-11] MEDS ORDERED: DOCUSATE SOD 100 MG CAP PO PRN (18:30)
[2022-11-11] MEDS ORDERED: ALBUTEROL SULF 2.5 MG/0.5ML(0.5%) NEB SOLN NEB PRN (18:45)
[2022-11-11] MEDS ORDERED: IPRATROPIUM BROM 0.5 MG/2.5ML INH SOL NEB PRN (18:45)
[2022-11-11] MEDS: hydrALAZINE HCL 20 MG/ML VL IV PRN (19:37)
[2022-11-11 21:58] VITALS: BP 183/91
[2022-11-11] MEDS: PIPERACILLIN-TAZOB 3.375GM 100 ML IV SCH (22:20)
[2022-11-12] VITALS (50 sets, daily range): BP systolic 148–222; BP diastolic 61–110
[2022-11-12] MEDS: MORPHINE SULFATE INJ 2 MG/ml SYRG IV PRN ×2 (00:20→08:49)
[2022-11-12] MEDS: ONDANSETRON HCL 4 MG/2 ML VIAL IV PRN ×3 (00:20→10:48)
[2022-11-12] MEDS ORDERED: hydrALAZINE HCL 20 MG/ML VL IV ONE ×2 (00:30→10:15)
[2022-11-12] MEDS ORDERED: MORP15TA PO (02:26)
[2022-11-12] MEDS ORDERED: CLON0.1T PO (02:27)
[2022-11-12 05:02] LABS: Eosinophils # (auto) 0 10 ^3/uL (0-0.8)
[2022-11-12 05:22] LABS: Potassium 4.2 mmol/L (3.5-5.1)
[2022-11-12 05:26] LABS: Basophils # (auto) 0.2 10 ^3/uL (0-0.2); Basophils % (auto) 4.2 % (0.0-2.0); Eosinophils % (auto) 0.4 % (0.0-7.0); Hematocrit 41.7 % (41.0-53.0); Hemoglobin 13.7 g/dL (13.5-17.5); Lymphocytes # (auto) 0.3 10 ^3/uL (0.4-5.4); Lymphocytes % (auto) 6.8 % (10.0-50.0); Mean Corpuscular Hemoglobin 23.8 pg (28.0-32.0); Mean Corpuscular Hgb Conc. 32.9 g/dL (32.0-36.0); Mean Corpuscular Volume 72.5 fL (80.0-100.0); Monocytes # (auto) 0.3 10 ^3/uL (0-1.3); Monocytes % (auto) 6.9 % (0.0-12.0); Neutrophils # (auto) 4.1 10 ^3/uL (1.6-8.6); Neutrophils % (auto) 81.7 % (37.0-80.0); Nucleated Red Blood Cells % 0.4 %; Red Blood Cells 5.76 10^6/uL (4.5-5.90); Red Cell Distribution Width 17.6 % (11.8-14.3)
[2022-11-12 05:28] LABS: Albumin 3.2 g/dL (3.4-5.0); BUN/Creatinine Ratio 17.1 (10.0-20.0); Bilirubin, Total 0.3 mg/dL (0.2-1.0); Calcium 8.3 mg/dL (8.5-10.1); Total Protein 7.1 g/dL (6.4-8.2)
[2022-11-12] MEDS: hydrALAZINE HCL 20 MG/ML VL IV PRN ×3 (05:55→22:58)
[2022-11-12] MEDS ORDERED: PANTOPRAZOLE 40 MG/10 ML VIAL INJ IV SCH (10:15)
[2022-11-12] MEDS ORDERED: FLEET ENEMA(ADULT) 135 ML PR ONE (10:15)
[2022-11-12] MEDS ORDERED: PANTOPRAZOLE 80 MG in SODIUM CHL 0.9% 100 ML IV SCH (10:30)
[2022-11-12] MEDS: POLYETHYLENE GLYCOL 17 GM PWDR PO SCH (10:42)
[2022-11-12] MEDS: PIPERACILLIN-TAZOB 3.375GM 100 ML IV SCH ×2 (10:51→22:47)
[2022-11-12] MEDS ORDERED: ALBUMIN 25% 100 ML IV SCH (11:30)
[2022-11-12] MEDS ORDERED: PANTOPRAZOLE 80 MG in SODIUM CHL 0.9% 100 ML IV ONE (12:15)
[2022-11-12] MEDS ORDERED: SODIUM CHLORIDE 0.9% 1,000 ML IV SCH ×2 (14:00→16:15)
[2022-11-12] MEDS: OCTREOTIDE ACETATE 500 MCG in SODIUM CHL 0.9% 99 ML IV SCH ×2 (14:47→20:15)
[2022-11-12] MEDS: PANTOPRAZOLE 40mg/50ML NS AE 50 ML IV SCH ×3 (14:47→22:48)
[2022-11-12 16:39] LABS: Lymphocytes % (auto) 7.8 % (10.0-50.0)
[2022-11-12 16:40] LABS: Basophils % (auto) 0.2 % (0.0-2.0); Monocytes % (auto) 9.9 % (0.0-12.0); Neutrophils % (auto) 82.1 % (37.0-80.0); Nucleated Red Blood Cells % 0.2 %; White Blood Cell 8.8 10^3/uL (4.4-10.8)
[2022-11-12 16:41] LABS: Basophils # (auto) 0 10 ^3/uL (0-0.2); Eosinophils # (auto) 0 10 ^3/uL (0-0.8); Lymphocytes # (auto) 0.7 10 ^3/uL (0.4-5.4); Monocytes # (auto) 0.7 10 ^3/uL (0-1.3); Neutrophils # (auto) 7.2 10 ^3/uL (1.6-8.6)
[2022-11-12 16:42] LABS: Hematocrit 43.8 % (41.0-53.0); Hemoglobin 13.8 g/dL (13.5-17.5); Mean Corpuscular Hemoglobin 23.6 pg (28.0-32.0); Mean Corpuscular Hgb Conc. 31.6 g/dL (32.0-36.0); Mean Corpuscular Volume 74.8 fL (80.0-100.0); Red Blood Cells 5.86 10^6/uL (4.5-5.90); Red Cell Distribution Width 17.9 % (11.8-14.3)
[2022-11-13] VITALS (94 sets, daily range): BP systolic 121–172; BP diastolic 47–77
[2022-11-13] MEDS: hydrALAZINE HCL 20 MG/ML VL IV PRN (03:00)
[2022-11-13] MEDS: PANTOPRAZOLE 40mg/50ML NS AE 50 ML IV SCH ×5 (03:15→21:49)
[2022-11-13 05:13] LABS: Basophils # (auto) 0 10 ^3/uL (0-0.2); Basophils % (auto) 0.4 % (0.0-2.0); Eosinophils # (auto) 0 10 ^3/uL (0-0.8); Lymphocytes # (auto) 0.7 10 ^3/uL (0.4-5.4); Mean Corpuscular Hemoglobin 23.8 pg (28.0-32.0); Nucleated Red Blood Cells % 0.1 %
[2022-11-13 05:16] LABS: Hemoglobin 11.6 g/dL (13.5-17.5); Lymphocytes % (auto) 12.3 % (10.0-50.0); Mean Corpuscular Hgb Conc. 32.3 g/dL (32.0-36.0); Mean Corpuscular Volume 73.7 fL (80.0-100.0); Monocytes # (auto) 0.5 10 ^3/uL (0-1.3); Monocytes % (auto) 8.8 % (0.0-12.0); Neutrophils # (auto) 4.7 10 ^3/uL (1.6-8.6); Neutrophils % (auto) 78.5 % (37.0-80.0); Red Blood Cells 4.88 10^6/uL (4.5-5.90); Red Cell Distribution Width 17.4 % (11.8-14.3)
[2022-11-13 05:41] LABS: BUN/Creatinine Ratio 17.2 (10.0-20.0); Calcium 7.9 mg/dL (8.5-10.1); Potassium 4.4 mmol/L (3.5-5.1)
[2022-11-13] MEDS: OCTREOTIDE ACETATE 500 MCG in SODIUM CHL 0.9% 99 ML IV SCH ×3 (06:15→20:48)
[2022-11-13] MEDS: POLYETHYLENE GLYCOL 17 GM PWDR PO SCH (10:00)
[2022-11-13] MEDS: PIPERACILLIN-TAZOB 3.375GM 100 ML IV SCH (10:23)
[2022-11-13] MEDS: hydrALAZINE HCL 20 MG/ML VL IV SCH ×3 (14:28→21:46)
[2022-11-13] MEDS: MORPHINE SULFATE INJ 2 MG/ml SYRG IV PRN (14:55)
[2022-11-13] MEDS ORDERED: cefTRIAXone 1GM/50ML D5W 50 ML IV ONE (15:00)
[2022-11-13] MEDS: D5W/SOD CHL 0.2% 1,000 ML IV SCH (16:27)
[2022-11-14] VITALS (95 sets, daily range): BP systolic 101–188; BP diastolic 50–135
[2022-11-14] MEDS: hydrALAZINE HCL 20 MG/ML VL IV SCH ×6 (01:55→22:49)
[2022-11-14] MEDS: PANTOPRAZOLE 40mg/50ML NS AE 50 ML IV SCH ×4 (03:04→21:02)
[2022-11-14] MEDS: OCTREOTIDE ACETATE 500 MCG in SODIUM CHL 0.9% 99 ML IV SCH ×2 (04:30→16:55)
[2022-11-14] MEDS: D5W/SOD CHL 0.2% 1,000 ML IV SCH ×2 (04:30→11:00)
[2022-11-14 06:11] LABS: Basophils # (auto) 0 10 ^3/uL (0-0.2); Basophils % (auto) 0.2 % (0.0-2.0); Eosinophils # (auto) 0 10 ^3/uL (0-0.8); Hemoglobin 10.9 g/dL (13.5-17.5); Lymphocytes # (auto) 0.6 10 ^3/uL (0.4-5.4); Mean Corpuscular Hgb Conc. 32.3 g/dL (32.0-36.0); Monocytes # (auto) 0.4 10 ^3/uL (0-1.3); Neutrophils # (auto) 3.6 10 ^3/uL (1.6-8.6); Red Cell Distribution Width 17.2 % (11.8-14.3); White Blood Cell 4.7 10^3/uL (4.4-10.8)
[2022-11-14 06:14] LABS: Hematocrit 33.9 % (41.0-53.0); Lymphocytes % (auto) 13.6 % (10.0-50.0); Mean Corpuscular Hemoglobin 23.5 pg (28.0-32.0); Mean Corpuscular Volume 72.7 fL (80.0-100.0); Monocytes % (auto) 9.2 % (0.0-12.0); Red Blood Cells 4.66 10^6/uL (4.5-5.90)
[2022-11-14 06:28] LABS: BUN/Creatinine Ratio 19.7 (10.0-20.0); Calcium 8.1 mg/dL (8.5-10.1); Potassium 3.7 mmol/L (3.5-5.1)
[2022-11-14] MEDS: POLYETHYLENE GLYCOL 17 GM PWDR PO SCH (10:00)
[2022-11-14] MEDS: cefTRIAXone 1GM/50ML D5W 50 ML IV SCH (10:01)
[2022-11-14] MEDS: MORPHINE SULFATE INJ 2 MG/ml SYRG IV PRN ×2 (10:54→16:04)
[2022-11-14] MEDS: ONDANSETRON HCL 4 MG/2 ML VIAL IV PRN (17:10)
[2022-11-15] VITALS (91 sets, daily range): BP systolic 118–176; BP diastolic 50–150
[2022-11-15] MEDS: PANTOPRAZOLE 40mg/50ML NS AE 50 ML IV SCH ×5 (00:15→18:47)
[2022-11-15] MEDS: hydrALAZINE HCL 20 MG/ML VL IV SCH ×6 (01:48→21:54)
[2022-11-15 05:09] LABS: Basophils # (auto) 0 10 ^3/uL (0-0.2); Eosinophils # (auto) 0 10 ^3/uL (0-0.8); Lymphocytes # (auto) 0.7 10 ^3/uL (0.4-5.4); Monocytes # (auto) 0.5 10 ^3/uL (0-1.3)
[2022-11-15 05:10] LABS: Basophils % (auto) 0.2 % (0.0-2.0); Hematocrit 37.4 % (41.0-53.0); Lymphocytes % (auto) 14.1 % (10.0-50.0); Mean Corpuscular Hemoglobin 23.7 pg (28.0-32.0); Mean Corpuscular Hgb Conc. 32.2 g/dL (32.0-36.0); Mean Corpuscular Volume 73.6 fL (80.0-100.0); Neutrophils # (auto) 4.1 10 ^3/uL (1.6-8.6); Neutrophils % (auto) 76.7 % (37.0-80.0); Nucleated Red Blood Cells % 0.4 %; Red Blood Cells 5.08 10^6/uL (4.5-5.90); Red Cell Distribution Width 17.3 % (11.8-14.3); White Blood Cell 5.3 10^3/uL (4.4-10.8)
[2022-11-15 05:16] LABS: BUN/Creatinine Ratio 22.4 (10.0-20.0); Potassium 3.7 mmol/L (3.5-5.1)
[2022-11-15] MEDS: OCTREOTIDE ACETATE 500 MCG in SODIUM CHL 0.9% 99 ML IV SCH ×2 (06:50→15:55)
[2022-11-15] MEDS: cefTRIAXone 1GM/50ML D5W 50 ML IV SCH (08:48)
[2022-11-15] MEDS: D5W/SOD CHL 0.2% 1,000 ML IV SCH (08:48)
[2022-11-15] MEDS: POLYETHYLENE GLYCOL 17 GM PWDR PO SCH (10:00)
[2022-11-15] MEDS ORDERED: GASTROGRAFIN 120 ML SOL ONE (10:55)
[2022-11-15] MEDS: ONDANSETRON HCL 4 MG/2 ML VIAL IV PRN ×2 (14:04→18:38)
[2022-11-15] MEDS: MORPHINE SULFATE INJ 2 MG/ml SYRG IV PRN (14:05)
[2022-11-15] MEDS: D5W/SOD CHL 0.45% 1,000 ML IV SCH (14:11)
[2022-11-15] MEDS ORDERED: amLODIPine BESYLATE 5 MG TAB PO ONE (16:30)
[2022-11-15] MEDS ORDERED: OLANZapine 5 MG TAB PO ONE (16:30)
[2022-11-15] MEDS ORDERED: ENALAPRIL MALEATE 2.5 MG TAB PO ONE (16:30)
[2022-11-15] MEDS ORDERED: METOPROLOL TARTRATE 50 MG TAB PO ONE (16:30)
[2022-11-15] MEDS ORDERED: ARTIFICIAL TEARS 15ml EACHEYE PRN (18:00)
[2022-11-15] MEDS ORDERED: TAMSULOSIN HYDROCHLORIDE 0.4 MG CAP PO SCH (18:00)
[2022-11-15] MEDS ORDERED: SUCR1TAB PO (18:07)
[2022-11-15] MEDS: ATORVASTATIN 20 MG TAB PO SCH (21:53)
[2022-11-15] MEDS: METOPROLOL TARTRATE 50 MG TAB PO SCH ×2 (21:54→22:54)
[2022-11-15] MEDS: TRIHEXYPHENIDYL 2 MG PO SCH (21:55)
[2022-11-16] VITALS (93 sets, daily range): BP systolic 121–195; BP diastolic 52–115
[2022-11-16] MEDS: PANTOPRAZOLE 40mg/50ML NS AE 50 ML IV SCH ×3 (01:48→11:11)
[2022-11-16] MEDS: hydrALAZINE HCL 20 MG/ML VL IV SCH ×4 (01:53→16:09)
[2022-11-16] MEDS: OCTREOTIDE ACETATE 500 MCG in SODIUM CHL 0.9% 99 ML IV SCH (04:23)
[2022-11-16] MEDS ORDERED: LACTULOSE 20Gm/30ML SOLN PO SCH (10:00)
[2022-11-16] MEDS: TRIHEXYPHENIDYL 2 MG PO SCH ×2 (10:00→21:32)
[2022-11-16] MEDS ORDERED: ENALAPRIL MALEATE 2.5 MG TAB PO SCH (10:00)
[2022-11-16] MEDS: POLYETHYLENE GLYCOL 17 GM PWDR PO SCH (10:00)
[2022-11-16] MEDS: cefTRIAXone 1GM/50ML D5W 50 ML IV SCH (10:37)
[2022-11-16] MEDS: METOPROLOL TARTRATE 50 MG TAB PO SCH ×2 (11:06→21:33)
[2022-11-16] MEDS: FUROSEMIDE 40 MG TAB PO SCH (11:06)
[2022-11-16] MEDS: OLANZapine 5 MG TAB PO SCH ×2 (11:08→21:32)
[2022-11-16] MEDS: amLODIPine BESYLATE 5 MG TAB PO SCH (11:08)
[2022-11-16] MEDS: D5W/SOD CHL 0.45% 1,000 ML IV SCH (13:30)
[2022-11-16] MEDS ORDERED: ONDANSETRON HCL 4 MG/2 ML VIAL IV PRN (16:45)
[2022-11-16] MEDS: hydrALAZINE HCL 25 MG TAB PO SCH ×2 (17:13→21:32)
[2022-11-16] MEDS: cloNIDine HCL 0.1 MG TAB PO SCH ×2 (17:13→21:33)
[2022-11-16 18:26] LABS: BUN/Creatinine Ratio 25.8 (10.0-20.0); Calcium 7.5 mg/dL (8.5-10.1); Potassium 5.4 mmol/L (3.5-5.1)
[2022-11-16] MEDS: ATORVASTATIN 20 MG TAB PO SCH (21:32)
[2022-11-16] MEDS ORDERED: SODIUM ZIRCONIUM CYCL 10 GM PAK PO ONE (23:00)
[2022-11-16 23:46] LABS: BUN/Creatinine Ratio 30.5 (10.0-20.0); Calcium 7.7 mg/dL (8.5-10.1); Potassium 4.3 mmol/L (3.5-5.1)
[2022-11-17] VITALS (43 sets, daily range): BP systolic 129–182; BP diastolic 61–95
[2022-11-17 05:11] LABS: BUN/Creatinine Ratio 30.9 (10.0-20.0); Calcium 7.9 mg/dL (8.5-10.1); Potassium 4.4 mmol/L (3.5-5.1)
[2022-11-17] MEDS: hydrALAZINE HCL 25 MG TAB PO SCH ×4 (05:48→21:39)
[2022-11-17] MEDS: TRIHEXYPHENIDYL 2 MG PO SCH ×2 (09:46→22:00)
[2022-11-17] MEDS: cloNIDine HCL 0.1 MG TAB PO SCH ×2 (10:06→21:38)
[2022-11-17] MEDS: cefTRIAXone 1GM/50ML D5W 50 ML IV SCH (10:06)
[2022-11-17] MEDS: FUROSEMIDE 40 MG TAB PO SCH (10:07)
[2022-11-17] MEDS: PANTOPRAZOLE 40 MG TAB PO SCH (10:07)
[2022-11-17] MEDS: amLODIPine BESYLATE 5 MG TAB PO SCH (10:07)
[2022-11-17] MEDS: OLANZapine 5 MG TAB PO SCH ×2 (10:21→21:38)
[2022-11-17] MEDS: D5W/SOD CHL 0.45% 1,000 ML IV SCH (14:32)
[2022-11-17] MEDS: VANCOMYCIN HCL 125MG/5ML ORAL SOL GT SCH ×2 (18:06→21:39)
[2022-11-17 19:36] LABS: Basophils # (auto) 0 10 ^3/uL (0-0.2); Eosinophils # (auto) 0 10 ^3/uL (0-0.8); Lymphocytes # (auto) 0.8 10 ^3/uL (0.4-5.4); Monocytes # (auto) 0.3 10 ^3/uL (0-1.3); Neutrophils # (auto) 2.4 10 ^3/uL (1.6-8.6); White Blood Cell 3.5 10^3/uL (4.4-10.8)
[2022-11-17 19:38] LABS: Basophils % (auto) 0.3 % (0.0-2.0); Hematocrit 46.3 % (41.0-53.0); Hemoglobin 14.8 g/dL (13.5-17.5); Lymphocytes % (auto) 22.6 % (10.0-50.0); Mean Corpuscular Hemoglobin 23.4 pg (28.0-32.0); Mean Corpuscular Hgb Conc. 31.9 g/dL (32.0-36.0); Mean Corpuscular Volume 73.4 fL (80.0-100.0); Monocytes % (auto) 9.2 % (0.0-12.0); Neutrophils % (auto) 67.9 % (37.0-80.0); Red Blood Cells 6.32 10^6/uL (4.5-5.90)
[2022-11-17] MEDS: ATORVASTATIN 20 MG TAB PO SCH (21:38)
[2022-11-18 04:59] LABS: Creatinine, Urine 22 mg/dL (30.0-125.0); Sodium Urine 87 mmol/L (40-220)
[2022-11-18] MEDS: hydrALAZINE HCL 25 MG TAB PO SCH ×2 (05:32→13:14)
[2022-11-18] MEDS: VANCOMYCIN HCL 125MG/5ML ORAL SOL GT SCH ×3 (05:32→18:00)
[2022-11-18 08:00] VITALS: BP 173/86
[2022-11-18] MEDS: cloNIDine HCL 0.1 MG TAB PO SCH (08:36)
[2022-11-18] MEDS: PANTOPRAZOLE 40 MG TAB PO SCH (08:37)
[2022-11-18] MEDS: OLANZapine 5 MG TAB PO SCH (08:37)
[2022-11-18] MEDS: FUROSEMIDE 40 MG TAB PO SCH (08:37)
[2022-11-18] MEDS: amLODIPine BESYLATE 5 MG TAB PO SCH (08:38)
[2022-11-18] MEDS: TRIHEXYPHENIDYL 2 MG PO SCH (10:00)
[2022-11-18 12:00] VITALS: BP 148/73
[2022-11-18] MEDS ORDERED: VANC125PO GT (13:52)
[2022-11-18] MEDS ORDERED: HYDR100T22 PO (13:52)
[2022-11-18 16:00] VITALS: BP 143/87
[2022-11-18 16:15] VITALS: BP 143/87
== END 2022-11-18 18:12 | disposition home or self-care (01) | DRG 374 ==
LOC: ER 12:07 → TELE 18:32 → TELE-CENTR 11-12 01:01 → ICU CENTRL 11-12 01:05 → DOU IN ICU 11-12 12:52 → ICU CENTRL 11-12 18:39 → DOU IN ICU 11-17 16:55 → TELE-EAST 11-17 21:09
PROVIDERS: ADMIT Nurse Practitioner Family; ATTEND Internal Medicine
PROC: 0W9G3ZZ Drainage of Peritoneal Cavity, Percutaneous Approach (ICD-10-PCS; principal; 2022-11-12)
PROC: 05H933Z Insertion of Infusion Device into Right Brachial Vein, Percutaneous Approach (ICD-10-PCS; 2022-11-13)
PROC: B54MZZA Ultrasonography of Right Upper Extremity Veins, Guidance (ICD-10-PCS; 2022-11-13)
DX: C78.5 Secondary malignant neoplasm of large intestine and rectum (principal); E43 Unspecified severe protein-calorie malnutrition; J96.01 Acute respiratory failure with hypoxia; C16.9 Malignant neoplasm of stomach, unspecified; A04.72 Enterocolitis due to Clostridium difficile, not specified as recurrent; N17.9 Acute kidney failure, unspecified; R18.0 Malignant ascites; I16.1 Hypertensive emergency; J98.11 Atelectasis; K56.609 Unspecified intestinal obstruction, unspecified as to partial versus complete obstruction; N13.30 Unspecified hydronephrosis; N18.30 Chronic kidney disease, stage 3 unspecified; D17.71 Benign lipomatous neoplasm of kidney; I25.10 Atherosclerotic heart disease of native coronary artery without angina pectoris; J44.9 Chronic obstructive pulmonary disease, unspecified; D17.9 Benign lipomatous neoplasm, unspecified; E86.0 Dehydration; K74.60 Unspecified cirrhosis of liver; I12.9 Hypertensive chronic kidney disease with stage 1 through stage 4 chronic kidney disease, or unspecified chronic kidney disease; G30.9 Alzheimer's disease, unspecified; E87.5 Hyperkalemia; G89.29 Other chronic pain; K59.00 Constipation, unspecified; F20.9 Schizophrenia, unspecified; N40.0 Benign prostatic hyperplasia without lower urinary tract symptoms; Z68.20 Body mass index [BMI] 20.0-20.9, adult; Z82.49 Family history of ischemic heart disease and other diseases of the circulatory system
CPT/HCPCS: 36415; 71045; 74176; 74250; 76705; 76775; 76942; 80048; 80053; 80320; 81001; 82140; 82150; 82570; 83615; 83690; 83986; 84300; 84484; 85007; 85025; 85027; 85610; 85730; 87081; 87086; 87205; 87493; 89051; 93005; 96361; 96372; 96374; C9113; G0378; J0696; J2405; J2543; Q0162

== ENCOUNTER 2022-11-27 10:30 | Inpatient (IN) | payer OTHER ==
[~2022-11-27] VITALS: Ht 172.7 cm; Wt 59.6 kg
[~2022-11-27 10:30] MED LIST changes: -ACET-1881 PO; +CLON0.1T PO; -ENAL5TAB22 PO; -FAMO20TA10 PO; +HYDR100T22 PO; -LINE1TAB6 PO; -MET50T PO; +MORP15TA PO; -NIFE90TA75 PO; +SUCR1TAB PO; -TAMS0.4C36 PO; -TRAM50TA2 PO; +VANC125PO GT; -[UNRECOGNIZED DRUG - CODE] PO
[2022-11-27] MEDS ORDERED: KETOROLAC TROMETH 30 MG/ML 1ML VIAL IV ONE (10:45)
[2022-11-27 11:10] LABS: Basophils # (auto) 0 10 ^3/uL (0-0.2); Eosinophils # (auto) 0 10 ^3/uL (0-0.8); Hemoglobin 11.9 g/dL (13.5-17.5); Lymphocytes # (auto) 0.8 10 ^3/uL (0.4-5.4); Neutrophils # (auto) 2.5 10 ^3/uL (1.6-8.6); Nucleated Red Blood Cells % 0.2 %; White Blood Cell 3.7 10^3/uL (4.4-10.8)
[2022-11-27 11:12] LABS: Basophils % (auto) 0.6 % (0.0-2.0); Eosinophils % (auto) 0.3 % (0.0-7.0); Hematocrit 37.2 % (41.0-53.0); Lymphocytes % (auto) 22.1 % (10.0-50.0); Mean Corpuscular Hemoglobin 23.5 pg (28.0-32.0); Mean Corpuscular Hgb Conc. 32.1 g/dL (32.0-36.0); Mean Corpuscular Volume 73.1 fL (80.0-100.0); Monocytes # (auto) 0.4 10 ^3/uL (0-1.3); Monocytes % (auto) 9.8 % (0.0-12.0); Neutrophils % (auto) 67.2 % (37.0-80.0); Red Blood Cells 5.09 10^6/uL (4.5-5.90); Red Cell Distribution Width 16.5 % (11.8-14.3)
[2022-11-27 11:19] LABS: Alanine Aminotransferase 33 U/L (16-61); Albumin 2.9 g/dL (3.4-5.0); Anion Gap 6 (5-15); Blood Alcohol < 3.0 mg/dL (0-5); Blood Urea Nitrogen 35 mg/dL (7-18); Calcium 7.9 mg/dL (8.5-10.1); Carbon Dioxide 24 mmol/L (21-32); Chloride 108 mmol/L (98-107); Glucose 101 mg/dL (74-106); Lipase 134 U/L (73-393); Potassium 4.1 mmol/L (3.5-5.1); Sodium 138 mmol/L (136-145)
[2022-11-27 11:22] LABS: Alkaline Phosphatase 63 U/L (45-117); Aspartate Aminotransferase 21 U/L (15-37); BUN/Creatinine Ratio 16.2 (10.0-20.0); Bilirubin, Total 0.2 mg/dL (0.2-1.0); GFR African American 39 mL/min; GFR Non-African American 32 mL/min; Total Protein 6.1 g/dL (6.4-8.2)
[2022-11-27 11:23] LABS: Partial Thromboplastin Time 23.4 sec (24.6-33.4)
[2022-11-27] MEDS ORDERED: LACTULOSE 20Gm/30ML SOLN PO ONE ×2 (13:45→19:00)
[2022-11-27] MEDS ORDERED: NITROGLYCERIN 0.4 MG SL TAB SL PRN (19:00)
[2022-11-27] MEDS ORDERED: MORPHINE SULFATE INJ 2 MG/ml SYRG IV PRN (19:00)
[2022-11-27] MEDS ORDERED: MORPHINE SULFATE INJ 2 MG/ml SYRG IV ONE (19:30)
[2022-11-27] MEDS ORDERED: PATIENTS OWN MEDICATION (Hydralazine HCl (Hydralazine Hydrochloride) 100 MG) PO SCH (22:00)
[2022-11-28 00:18] LABS: Alcohol, Urine < 3.0 mg/dL (0-10); Amphetamine Screen, Urine NEGATIVE (NEGATIVE); Barbiturate Scree,Urine NEGATIVE (NEGATIVE); Benzodiazephine Screen, Urine NEGATIVE (NEGATIVE); Cannabinoid Screen, Urine NEGATIVE (NEGATIVE); Cocaine Screen, Urine NEGATIVE (NEGATIVE); Opiate Scree,Urine NEGATIVE (NEGATIVE); Phencyclidine Screen, Urine NEGATIVE (NEGATIVE)
[2022-11-28 00:25] LABS: Urine Bacteria NONE SEEN /hpf (None Seen); Urine Blood Negative /uL (Negative); Urine Specific Gravity 1.016 (1.001-1.035); Urine WBC 6 /hpf (0 - 3)
[2022-11-28] MEDS: hydrALAZINE HCL 25 MG TAB PO SCH ×4 (00:33→22:29)
[2022-11-28] MEDS: cloNIDine HCL 0.1 MG TAB PO SCH ×3 (00:34→22:00)
[2022-11-28] MEDS: SUCRALFATE 1 GM TAB PO SCH ×5 (00:34→22:00)
[2022-11-28] MEDS: OLANZapine 5 MG TAB PO SCH ×2 (00:38→09:29)
[2022-11-28 06:18] LABS: Albumin 2.3 g/dL (3.4-5.0); Calcium 7.9 mg/dL (8.5-10.1); Potassium 4.8 mmol/L (3.5-5.1)
[2022-11-28 06:23] LABS: BUN/Creatinine Ratio 16.2 (10.0-20.0); Bilirubin, Total 0.2 mg/dL (0.2-1.0); Total Protein 6.1 g/dL (6.4-8.2)
[2022-11-28 07:03] LABS: Basophils # (auto) 0 10 ^3/uL (0-0.2); Basophils % (auto) 0.4 % (0.0-2.0); Eosinophils # (auto) 0 10 ^3/uL (0-0.8); Hemoglobin 12.1 g/dL (13.5-17.5); Monocytes # (auto) 0.5 10 ^3/uL (0-1.3); Neutrophils # (auto) 3.1 10 ^3/uL (1.6-8.6); Nucleated Red Blood Cells % 0.1 %; White Blood Cell 4.4 10^3/uL (4.4-10.8)
[2022-11-28 07:05] LABS: Eosinophils % (auto) 0.5 % (0.0-7.0); Lymphocytes # (auto) 0.8 10 ^3/uL (0.4-5.4); Lymphocytes % (auto) 17.6 % (10.0-50.0); Mean Corpuscular Hemoglobin 23.8 pg (28.0-32.0); Mean Corpuscular Hgb Conc. 32.6 g/dL (32.0-36.0); Monocytes % (auto) 11.3 % (0.0-12.0); Neutrophils % (auto) 70.2 % (37.0-80.0); Red Blood Cells 5.07 10^6/uL (4.5-5.90); Red Cell Distribution Width 16.9 % (11.8-14.3)
[2022-11-28] MEDS: LACTULOSE 20Gm/30ML SOLN PO SCH ×2 (09:28→22:00)
[2022-11-28] MEDS: ATORVASTATIN 20 MG TAB PO SCH (09:29)
[2022-11-28] MEDS: FUROSEMIDE 40 MG TAB PO SCH (09:29)
[2022-11-28] MEDS: amLODIPine BESYLATE 5 MG TAB PO SCH (09:30)
[2022-11-28] MEDS ORDERED: PANTOPRAZOLE 40 MG/10 ML VIAL INJ IV SCH (10:00)
[2022-11-28] MEDS ORDERED: traZODone HCL 50 MG TAB PO SCH (18:00)
[2022-11-28] MEDS ORDERED: DONE5TAB80 PO (18:27)
[2022-11-28] MEDS ORDERED: MET50T PO (18:27)
[2022-11-28] MEDS ORDERED: NIFE90TA75 PO (18:27)
[2022-11-28 22:00] VITALS: BP 182/91
[2022-11-28] MEDS: DONEPEZIL HYDROCHLORIDE 5 MG TAB PO SCH (22:00)
[2022-11-29] MEDS: hydrALAZINE HCL 25 MG TAB PO SCH ×2 (06:00→14:00)
[2022-11-29] MEDS: SUCRALFATE 1 GM TAB PO SCH ×4 (06:00→21:42)
[2022-11-29 08:00] VITALS: BP 174/82
[2022-11-29 09:00] VITALS: BP 174/82
[2022-11-29] MEDS: LACTULOSE 20Gm/30ML SOLN PO SCH ×2 (10:38→21:41)
[2022-11-29] MEDS: OLANZapine 5 MG TAB PO SCH (10:39)
[2022-11-29] MEDS: PANTOPRAZOLE 40 MG TAB PO SCH (10:39)
[2022-11-29] MEDS: ATORVASTATIN 20 MG TAB PO SCH (10:39)
[2022-11-29] MEDS: cloNIDine HCL 0.1 MG TAB PO SCH ×2 (10:42→21:43)
[2022-11-29] MEDS: FUROSEMIDE 40 MG TAB PO SCH (10:42)
[2022-11-29] MEDS: amLODIPine BESYLATE 5 MG TAB PO SCH (10:43)
[2022-11-29] MEDS: METOPROLOL TARTRATE 50 MG TAB PO SCH ×2 (10:44→21:42)
[2022-11-29] MEDS ORDERED: METOCLOPRAMIDE HCL 5MG/ml INJ 2ml VIAL IV ONE (10:45)
[2022-11-29] MEDS ORDERED: SENNA 8.6 MG TAB PO ONE (10:45)
[2022-11-29] MEDS ORDERED: POLYETHYLENE GLYCOL 17 GM PWDR PO ONE (10:45)
[2022-11-29] MEDS ORDERED: POLYETHYLENE GLYCOL 17 GM PWDR PO PRN (10:45)
[2022-11-29] MEDS: FLEET ENEMA(ADULT) 135 ML PR ONE ×2 (10:48→18:51)
[2022-11-29 13:00] VITALS: BP 121/92
[2022-11-29] MEDS ORDERED: MORPHINE SULFATE INJ 2 MG/ml SYRG IV PRN (13:30)
[2022-11-29] MEDS ORDERED: POTA-228 PO (16:29)
[2022-11-29] MEDS ORDERED: ZOFR4T PO (16:29)
[2022-11-29] MEDS ORDERED: ALBU0.084 NEB (16:29)
[2022-11-29] MEDS ORDERED: TRAM50TA2 PO (16:29)
[2022-11-29 17:00] VITALS: BP 176/91
[2022-11-29] MEDS ORDERED: LABETALOL HCL 5 MG/ML 4ML SYRINGE IV ONE (18:15)
[2022-11-29] MEDS: SPIRONOLACTONE 25 MG TAB PO SCH (18:51)
[2022-11-29 20:00] VITALS: BP 146/71
[2022-11-29] MEDS: DONEPEZIL HYDROCHLORIDE 5 MG TAB PO SCH (21:43)
[2022-11-29 22:00] VITALS: BP 146/71
[2022-11-29] MEDS ORDERED: traZODone HCL 50 MG TAB PO SCH (22:00)
[2022-11-30 05:00] VITALS: BP 123/54
[2022-11-30] MEDS: SUCRALFATE 1 GM TAB PO SCH (05:31)
[2022-11-30] MEDS: SPIRONOLACTONE 25 MG TAB PO SCH (05:31)
[2022-11-30 09:00] VITALS: BP 129/57
[2022-11-30] MEDS: METOPROLOL TARTRATE 50 MG TAB PO SCH (10:00)
[2022-11-30] MEDS: PANTOPRAZOLE 40 MG TAB PO SCH (11:07)
[2022-11-30] MEDS: OLANZapine 5 MG TAB PO SCH (11:07)
[2022-11-30] MEDS: LACTULOSE 20Gm/30ML SOLN PO SCH (11:07)
[2022-11-30] MEDS: ATORVASTATIN 20 MG TAB PO SCH (11:08)
[2022-11-30] MEDS: FUROSEMIDE 40 MG TAB PO SCH (11:08)
[2022-11-30] MEDS: cloNIDine HCL 0.1 MG TAB PO SCH (11:08)
[2022-11-30] MEDS: amLODIPine BESYLATE 5 MG TAB PO SCH (11:09)
== END 2022-11-30 11:00 | disposition hospice, home (50) | DRG 374 ==
LOC: ER 10:30 → TELE 19:17 → TELE-WESTW 11-28 18:46
PROVIDERS: ADMIT Nurse Practitioner Family; ATTEND Nurse Practitioner Acute Care
PROC: 0W9G3ZZ Drainage of Peritoneal Cavity, Percutaneous Approach (ICD-10-PCS; principal; 2022-11-28)
DX: C78.6 Secondary malignant neoplasm of retroperitoneum and peritoneum (principal); E43 Unspecified severe protein-calorie malnutrition; I13.0 Hypertensive heart and chronic kidney disease with heart failure and stage 1 through stage 4 chronic kidney disease, or unspecified chronic kidney disease; N13.30 Unspecified hydronephrosis; N17.9 Acute kidney failure, unspecified; R18.0 Malignant ascites; K59.00 Constipation, unspecified; J44.9 Chronic obstructive pulmonary disease, unspecified; E78.5 Hyperlipidemia, unspecified; F20.9 Schizophrenia, unspecified; F02.80 Dementia in other diseases classified elsewhere, unspecified severity, without behavioral disturbance, psychotic disturbance, mood disturbance, and anxiety; G30.9 Alzheimer's disease, unspecified; F17.210 Nicotine dependence, cigarettes, uncomplicated; I25.10 Atherosclerotic heart disease of native coronary artery without angina pectoris; I50.9 Heart failure, unspecified; D17.9 Benign lipomatous neoplasm, unspecified; K21.9 Gastro-esophageal reflux disease without esophagitis; N18.9 Chronic kidney disease, unspecified; K57.30 Diverticulosis of large intestine without perforation or abscess without bleeding; Z85.028 Personal history of other malignant neoplasm of stomach; Z85.528 Personal history of other malignant neoplasm of kidney; Z91.199 Patient's noncompliance with other medical treatment and regimen due to unspecified reason; Z68.20 Body mass index [BMI] 20.0-20.9, adult
CPT/HCPCS: 36415; 71045; 74176; 76705; 76942; 80053; 80307; 80320; 81001; 82140; 83605; 83690; 83986; 84484; 85025; 85610; 85730; 87205; 89051; 93005; C9113; G0378; J1885; J3490

== ENCOUNTER 2022-12-06 12:52 | Inpatient (IN) | payer OTHER ==
[~2022-12-06] VITALS: Ht 172.7 cm; Wt 57.1 kg
[~2022-12-06 12:52] MED LIST changes: +ALBU0.084 NEB; +DONE5TAB80 PO; +MET50T PO; +NIFE90TA75 PO; +POTA-228 PO; +TRAM50TA2 PO; +ZOFR4T PO
[2022-12-06 13:32] LABS: Basophils # (auto) 0 10 ^3/uL (0-0.2); Eosinophils # (auto) 0 10 ^3/uL (0-0.8); Hemoglobin 11.9 g/dL (13.5-17.5); Lymphocytes # (auto) 0.9 10 ^3/uL (0.4-5.4); Lymphocytes % (auto) 28.7 % (10.0-50.0); Neutrophils # (auto) 1.7 10 ^3/uL (1.6-8.6); Nucleated Red Blood Cells % 0.2 %; Red Cell Distribution Width 16.9 % (11.8-14.3)
[2022-12-06 13:35] LABS: Basophils % (auto) 0.3 % (0.0-2.0); Eosinophils % (auto) 0.3 % (0.0-7.0); Hematocrit 38.3 % (41.0-53.0); Mean Corpuscular Volume 74.2 fL (80.0-100.0); Monocytes # (auto) 0.4 10 ^3/uL (0-1.3); Monocytes % (auto) 14.2 % (0.0-12.0); Neutrophils % (auto) 56.5 % (37.0-80.0); Red Blood Cells 5.16 10^6/uL (4.5-5.90)
[2022-12-06 14:02] LABS: Potassium 4.7 mmol/L (3.5-5.1)
[2022-12-06 14:09] LABS: Albumin 2.3 g/dL (3.4-5.0); BUN/Creatinine Ratio 14.7 (10.0-20.0); Bilirubin, Total 0.2 mg/dL (0.2-1.0); Calcium 7.7 mg/dL (8.5-10.1); Total Protein 5.3 g/dL (6.4-8.2)
[2022-12-06] MEDS ORDERED: HALOPERIDOL LACTATE 5 MG/ML INJ VIAL IM PRN (17:30)
[2022-12-07] MEDS: traZODone HCL 50 MG TAB PO SCH ×3 (00:24→00:43)
[2022-12-07] MEDS: OLANZapine 5 MG TAB PO SCH ×4 (00:24→23:54)
[2022-12-07] MEDS: METOPROLOL TARTRATE 50 MG TAB PO SCH ×3 (00:25→22:00)
[2022-12-07] MEDS: HYDROcodone-ACET 5/325MG TAB PO PRN (00:25)
[2022-12-07] MEDS: ATORVASTATIN 20 MG TAB PO SCH ×3 (00:25→23:57)
[2022-12-07] MEDS: DONEPEZIL HYDROCHLORIDE 5 MG TAB PO SCH ×2 (00:25→23:55)
[2022-12-07] MEDS: SUCRALFATE 1 GM TAB PO SCH ×6 (00:25→23:54)
[2022-12-07] MEDS: MELATONIN 5 MG TAB PO SCH ×2 (00:26→23:55)
[2022-12-07] MEDS: TRIHEXYPHENIDYL HCL 2 MG PO SCH ×3 (00:29→22:00)
[2022-12-07] MEDS: cloNIDine HCL 0.1 MG TAB PO SCH ×2 (00:29→11:18)
[2022-12-07 05:00] VITALS: BP 161/67
[2022-12-07 08:14] LABS: Basophils # (auto) 0 10 ^3/uL (0-0.2); Eosinophils # (auto) 0 10 ^3/uL (0-0.8); Lymphocytes # (auto) 0.7 10 ^3/uL (0.4-5.4); Monocytes # (auto) 0.4 10 ^3/uL (0-1.3); Monocytes % (auto) 15.1 % (0.0-12.0)
[2022-12-07 08:16] LABS: Basophils % (auto) 0.7 % (0.0-2.0); Eosinophils % (auto) 0.5 % (0.0-7.0); Hematocrit 40.9 % (41.0-53.0); Hemoglobin 12.9 g/dL (13.5-17.5); Lymphocytes % (auto) 24.3 % (10.0-50.0); Mean Corpuscular Hemoglobin 23.1 pg (28.0-32.0); Mean Corpuscular Hgb Conc. 31.5 g/dL (32.0-36.0); Mean Corpuscular Volume 73.5 fL (80.0-100.0); Neutrophils # (auto) 1.8 10 ^3/uL (1.6-8.6); Neutrophils % (auto) 59.4 % (37.0-80.0); Nucleated Red Blood Cells % 0.1 %; Red Blood Cells 5.57 10^6/uL (4.5-5.90); Red Cell Distribution Width 17.1 % (11.8-14.3)
[2022-12-07 08:31] LABS: Albumin 2.2 g/dL (3.4-5.0); Calcium 7.8 mg/dL (8.5-10.1)
[2022-12-07 08:35] LABS: BUN/Creatinine Ratio 14.6 (10.0-20.0); Bilirubin, Total 0.2 mg/dL (0.2-1.0); Total Protein 5.8 g/dL (6.4-8.2)
[2022-12-07 08:49] LABS: INR 1.03 (0.9-1.15); Partial Thromboplastin Time 24.9 sec (24.6-33.4)
[2022-12-07 09:00] VITALS: BP 155/86
[2022-12-07] MEDS: amLODIPine BESYLATE 5 MG TAB PO SCH (11:19)
[2022-12-07] MEDS: PANTOPRAZOLE 40 MG TAB PO SCH (11:20)
[2022-12-07] MEDS: FUROSEMIDE 40 MG TAB PO SCH (11:20)
[2022-12-07 13:00] VITALS: BP 154/64
[2022-12-07 21:46] VITALS: BP 145/67
[2022-12-08] MEDS: cloNIDine HCL 0.1 MG TAB PO SCH ×2 (00:03→10:27)
[2022-12-08 05:29] VITALS: BP 128/60
[2022-12-08] MEDS: SUCRALFATE 1 GM TAB PO SCH ×3 (07:40→17:26)
[2022-12-08 09:00] VITALS: BP 131/65
[2022-12-08] MEDS: TRIHEXYPHENIDYL HCL 2 MG PO SCH (10:00)
[2022-12-08] MEDS: PANTOPRAZOLE 40 MG TAB PO SCH (10:27)
[2022-12-08] MEDS: HYDROcodone-ACET 5/325MG TAB PO PRN (10:29)
[2022-12-08] MEDS: METOPROLOL TARTRATE 50 MG TAB PO SCH (10:29)
[2022-12-08] MEDS: amLODIPine BESYLATE 5 MG TAB PO SCH (10:29)
[2022-12-08] MEDS: FUROSEMIDE 40 MG TAB PO SCH (10:29)
[2022-12-08] MEDS: OLANZapine 5 MG TAB PO SCH (10:30)
[2022-12-08 13:00] VITALS: BP 138/75
[2022-12-08 17:00] VITALS: BP 134/66
[2022-12-08] MEDS: traZODone HCL 50 MG TAB PO SCH (17:27)
== END 2022-12-08 18:47 | disposition hospice, home (50) | DRG 947 ==
LOC: ER 12:52 → EDBD 12:52 → OVERFLOW 16:44 → EAST 12-07 00:48
PROVIDERS: ADMIT Nurse Practitioner Family; ATTEND Internal Medicine
PROC: 0W9G3ZZ Drainage of Peritoneal Cavity, Percutaneous Approach (ICD-10-PCS; principal; 2022-12-07)
DX: R18.0 Malignant ascites (principal); E43 Unspecified severe protein-calorie malnutrition; I13.0 Hypertensive heart and chronic kidney disease with heart failure and stage 1 through stage 4 chronic kidney disease, or unspecified chronic kidney disease; N17.9 Acute kidney failure, unspecified; N13.30 Unspecified hydronephrosis; Z68.1 Body mass index [BMI] 19.9 or less, adult; F02.83 Dementia in other diseases classified elsewhere, unspecified severity, with mood disturbance; N40.0 Benign prostatic hyperplasia without lower urinary tract symptoms; R11.2 Nausea with vomiting, unspecified; K21.9 Gastro-esophageal reflux disease without esophagitis; J44.9 Chronic obstructive pulmonary disease, unspecified; I50.9 Heart failure, unspecified; I25.10 Atherosclerotic heart disease of native coronary artery without angina pectoris; N18.30 Chronic kidney disease, stage 3 unspecified; G30.9 Alzheimer's disease, unspecified; D72.819 Decreased white blood cell count, unspecified; E78.5 Hyperlipidemia, unspecified; F17.210 Nicotine dependence, cigarettes, uncomplicated; F20.9 Schizophrenia, unspecified; F32.A Depression, unspecified; G89.29 Other chronic pain; Z82.49 Family history of ischemic heart disease and other diseases of the circulatory system; Z85.028 Personal history of other malignant neoplasm of stomach
CPT/HCPCS: 36415; 71045; 74176; 76705; 76942; 80053; 84484; 85025; 85610; 85730; 87081; G0378

== ENCOUNTER 2022-12-14 13:00 | Emergency (ER) | payer OTHER ==
[~2022-12-14] VITALS: Ht 172.7 cm; Wt 65.0 kg
[~2022-12-14 13:00] MED LIST changes: -AMLO1TAB23 PO; -CLON0.1T PO; -VANC125PO GT
[2022-12-14 13:59] LABS: Basophils # (auto) 0 10 ^3/uL (0-0.2); Eosinophils # (auto) 0 10 ^3/uL (0-0.8); Monocytes # (auto) 0.5 10 ^3/uL (0-1.3); Neutrophils # (auto) 2.3 10 ^3/uL (1.6-8.6); White Blood Cell 3.8 10^3/uL (4.4-10.8)
[2022-12-14 14:01] LABS: Basophils % (auto) 0.4 % (0.0-2.0); Eosinophils % (auto) 0.2 % (0.0-7.0); Hematocrit 38.6 % (41.0-53.0); Hemoglobin 12.1 g/dL (13.5-17.5); Lymphocytes % (auto) 26.9 % (10.0-50.0); Mean Corpuscular Hemoglobin 23.1 pg (28.0-32.0); Mean Corpuscular Hgb Conc. 31.4 g/dL (32.0-36.0); Mean Corpuscular Volume 73.7 fL (80.0-100.0); Monocytes % (auto) 11.9 % (0.0-12.0); Neutrophils % (auto) 60.6 % (37.0-80.0); Nucleated Red Blood Cells % 0.3 %; Red Blood Cells 5.24 10^6/uL (4.5-5.90); Red Cell Distribution Width 16.6 % (11.8-14.3)
[2022-12-14 14:28] LABS: Albumin 2.3 g/dL (3.4-5.0); Calcium 7.2 mg/dL (8.5-10.1); Potassium 4.1 mmol/L (3.5-5.1)
[2022-12-14 14:32] LABS: BUN/Creatinine Ratio 22.2 (10.0-20.0); Bilirubin, Total 0.2 mg/dL (0.2-1.0); Total Protein 5.8 g/dL (6.4-8.2)
[2022-12-14 17:00] VITALS: BP 168/78
== END 2022-12-14 17:27 | disposition home or self-care (01) ==
LOC: ER 13:00
DX: K72.10 Chronic hepatic failure without coma (principal); R18.8 Other ascites; I13.0 Hypertensive heart and chronic kidney disease with heart failure and stage 1 through stage 4 chronic kidney disease, or unspecified chronic kidney disease; N18.9 Chronic kidney disease, unspecified; I50.9 Heart failure, unspecified; J44.9 Chronic obstructive pulmonary disease, unspecified; K21.9 Gastro-esophageal reflux disease without esophagitis; E78.5 Hyperlipidemia, unspecified; F17.210 Nicotine dependence, cigarettes, uncomplicated; F12.10 Cannabis abuse, uncomplicated; I25.2 Old myocardial infarction; Z51.5 Encounter for palliative care
CPT/HCPCS: 36415; 49083; 80053; 85025

== ENCOUNTER 2022-12-17 10:37 | Inpatient (IN) | payer OTHER ==
[~2022-12-17] VITALS: Ht 154.5 cm; Wt 50.0 kg
[2022-12-17] MEDS: TRIHEXYPHENIDYL HCL 2 MG PO SCH (08:42)
[2022-12-17 11:49] LABS: Basophils # (auto) 0 10 ^3/uL (0-0.2); Eosinophils # (auto) 0 10 ^3/uL (0-0.8); Hemoglobin 12.8 g/dL (13.5-17.5); Mean Corpuscular Hgb Conc. 31.5 g/dL (32.0-36.0); Monocytes # (auto) 0.4 10 ^3/uL (0-1.3); Red Blood Cells 5.56 10^6/uL (4.5-5.90)
[2022-12-17 11:53] LABS: Basophils % (auto) 0.1 % (0.0-2.0); Hematocrit 40.7 % (41.0-53.0); Lymphocytes # (auto) 0.7 10 ^3/uL (0.4-5.4); Lymphocytes % (auto) 16.3 % (10.0-50.0); Mean Corpuscular Volume 73.1 fL (80.0-100.0); Monocytes % (auto) 9.7 % (0.0-12.0); Neutrophils % (auto) 73.9 % (37.0-80.0); Nucleated Red Blood Cells % 0.4 %; Red Cell Distribution Width 16.3 % (11.8-14.3)
[2022-12-17 12:00] LABS: Albumin 1.9 g/dL (3.4-5.0); Calcium 7.2 mg/dL (8.5-10.1); Potassium 4.4 mmol/L (3.5-5.1)
[2022-12-17 12:11] LABS: Bilirubin, Total 0.2 mg/dL (0.2-1.0); Total Protein 5.3 g/dL (6.4-8.2)
[2022-12-17] MEDS ORDERED: LACTULOSE 20Gm/30ML SOLN PO ONE (18:45)
[2022-12-17] MEDS ORDERED: ONDANSETRON HCL 4 MG/2 ML VIAL IV ONE (19:15)
[2022-12-17] MEDS ORDERED: MORPHINE SULFATE INJ 2 MG/ml SYRG IV ONE (19:15)
[2022-12-17] MEDS ORDERED: ALBUTEROL SULF 2.5 MG/0.5ML(0.5%) NEB SOLN NEB PRN (20:45)
[2022-12-17] MEDS ORDERED: IPRATROPIUM BROM 0.5 MG/2.5ML INH SOL NEB PRN (20:45)
[2022-12-17] MEDS ORDERED: hydrALAZINE HCL 20 MG/ML VL IV PRN (20:45)
[2022-12-17 21:19] VITALS: BP 145/77
[2022-12-17] MEDS ORDERED: OLANZapine 5 MG TAB PO SCH (22:00)
[2022-12-17] MEDS ORDERED: traZODone HCL 50 MG TAB PO SCH (22:00)
[2022-12-17] MEDS: LACTULOSE 20Gm/30ML SOLN PO SCH (22:18)
[2022-12-18 00:34] LABS: Urine Bacteria NONE SEEN /hpf (None Seen); Urine Blood Negative /uL (Negative); Urine Specific Gravity 1.016 (1.001-1.035); Urine WBC 3 /hpf (0 - 3)
[2022-12-18 09:24] LABS: Basophils # (auto) 0 10 ^3/uL (0-0.2); Basophils % (auto) 0.1 % (0.0-2.0); Eosinophils # (auto) 0 10 ^3/uL (0-0.8); Monocytes # (auto) 0.5 10 ^3/uL (0-1.3); Nucleated Red Blood Cells % 0.6 %; Red Cell Distribution Width 16.4 % (11.8-14.3)
[2022-12-18 09:26] LABS: Hematocrit 46.1 % (41.0-53.0); Hemoglobin 14.6 g/dL (13.5-17.5); Lymphocytes % (auto) 22.2 % (10.0-50.0); Mean Corpuscular Hemoglobin 23.1 pg (28.0-32.0); Mean Corpuscular Hgb Conc. 31.6 g/dL (32.0-36.0); Mean Corpuscular Volume 73.2 fL (80.0-100.0); Monocytes % (auto) 10.7 % (0.0-12.0); Neutrophils # (auto) 2.9 10 ^3/uL (1.6-8.6); Red Blood Cells 6.29 10^6/uL (4.5-5.90); White Blood Cell 4.3 10^3/uL (4.4-10.8)
[2022-12-18 09:31] LABS: Albumin 2.2 g/dL (3.4-5.0); Calcium 7.6 mg/dL (8.5-10.1); Potassium 4.8 mmol/L (3.5-5.1)
[2022-12-18 09:34] LABS: BUN/Creatinine Ratio 35.2 (10.0-20.0); Bilirubin, Total 0.3 mg/dL (0.2-1.0); Total Protein 5.9 g/dL (6.4-8.2)
[2022-12-18] MEDS ORDERED: PATIENTS OWN MEDICATION (Atorvastatin Calcium 1 TAB) PO SCH (10:00)
[2022-12-18] MEDS: TRIHEXYPHENIDYL HCL 2 MG PO SCH ×2 (10:00→21:18)
[2022-12-18] MEDS: ATORVASTATIN 20 MG TAB PO SCH (10:14)
[2022-12-18] MEDS: LACTULOSE 20Gm/30ML SOLN PO SCH ×2 (10:14→21:20)
[2022-12-18] MEDS: PANTOPRAZOLE 40 MG/10 ML VIAL INJ IV SCH (10:14)
[2022-12-18] MEDS: FUROSEMIDE 40 MG TAB PO SCH (10:14)
[2022-12-18] MEDS ORDERED: MORPHINE SULFATE INJ 2 MG/ml SYRG IV PRN (14:30)
[2022-12-18 17:47] VITALS: BP 140/73
[2022-12-18] MEDS ORDERED: PATIENTS OWN MEDICATION (Trazodone Hcl 1 TAB) PO SCH (18:00)
[2022-12-18 22:00] VITALS: BP 146/75
[2022-12-19 05:00] VITALS: BP 148/76
[2022-12-19 09:00] VITALS: BP 136/85
[2022-12-19] MEDS: TRIHEXYPHENIDYL HCL 2 MG PO SCH (10:00)
[2022-12-19] MEDS: ATORVASTATIN 20 MG TAB PO SCH (10:22)
[2022-12-19] MEDS: LACTULOSE 20Gm/30ML SOLN PO SCH (10:23)
[2022-12-19] MEDS: FUROSEMIDE 40 MG TAB PO SCH (10:23)
[2022-12-19] MEDS: PANTOPRAZOLE 40 MG/10 ML VIAL INJ IV SCH (10:23)
[2022-12-19 11:19] VITALS: BP 141/85
== END 2022-12-19 12:50 | disposition hospice, home (50) | DRG 947 ==
LOC: EDUNIT# 10:37 → EDBD 10:37 → ER 10:37 → OVERFLOW 20:30 → WEST WING 12-18 17:37
PROVIDERS: ADMIT Nurse Practitioner Family; ATTEND Nurse Practitioner Acute Care
DX: R18.8 Other ascites (principal); E43 Unspecified severe protein-calorie malnutrition; E72.20 Disorder of urea cycle metabolism, unspecified; I13.0 Hypertensive heart and chronic kidney disease with heart failure and stage 1 through stage 4 chronic kidney disease, or unspecified chronic kidney disease; N13.30 Unspecified hydronephrosis; R64 Cachexia; N18.32 Chronic kidney disease, stage 3b; J44.9 Chronic obstructive pulmonary disease, unspecified; I25.10 Atherosclerotic heart disease of native coronary artery without angina pectoris; I50.9 Heart failure, unspecified; F20.9 Schizophrenia, unspecified; K72.10 Chronic hepatic failure without coma; K21.9 Gastro-esophageal reflux disease without esophagitis; D72.819 Decreased white blood cell count, unspecified; G30.9 Alzheimer's disease, unspecified; F02.80 Dementia in other diseases classified elsewhere, unspecified severity, without behavioral disturbance, psychotic disturbance, mood disturbance, and anxiety; I25.2 Old myocardial infarction; R10.9 Unspecified abdominal pain; Z68.20 Body mass index [BMI] 20.0-20.9, adult; Z85.028 Personal history of other malignant neoplasm of stomach
CPT/HCPCS: 36415; 74176; 76705; 80053; 81001; 82140; 82962; 83605; 85025; 87081; 93005; 96374; 96375; C9113; G0378; J2405